=== PATIENT | female | born 1970 | race Caucasian/White ===

== ENCOUNTER 2017-06-12 05:55 | Day surgery (SDC) | payer OTHER ==
[~2017-06-12] VITALS: Ht 162.6 cm; Wt 63.6 kg
[~2017-06-12 05:55] MED LIST: BACLOFEN10 MG; CYCLOBENZAPRINE10 MG PO; FLOVENT HFA10.6 GM INH; GABAPENTIN300 MG; GUIATUSS AC SY120 ML PO; HYDROCODON-ACE1 EA11 PO; IBUPROFEN600 MG PO; IBUPROFEN800 MG PO; MELOXICAM15 MG PO; NORCO 5-325 TA1 EACH PO; PREDNISONE20 MG PO; PROTEXIN MM; SOMA350 MG PO; VENTOLIN HFA18 GM INH
[2017-06-12] MEDS ORDERED: SUCRALFATE1 GM PO (06:03)
--- NOTE | 2017-06-12 08:21 | NUR ---
06/12/17 0821 Bertha Rojas 0800 PT ARRVIED TO PACU WITH ORAL AIRWAY IN PLACE ON 6L VIA MASK. RESP EVEN AND UNLABORED. 0806 PT WOKE UP TO VERBAL STIMULI AND ORAL AIRWAY REMOVED. O2 SAT 100%, O2 MASK REMOVED. 0815 MD AT BEDSIDE. PT AWAKE AND TALKING.
--- NOTE | 2017-06-12 08:33 | NUR ---
ICED WATER AND COFFEE GIVEN. PATIENT IS UP TO BR W/RN FIRST ASSISTANT STANDBY. PT VOIDS UNMEASURED, CLEAR YELLOW URINE AND IS BACK IN BED. SCDS IN PLACE. SIG OTHER @ BS.
--- NOTE | 2017-06-12 08:59 | NUR ---
PATIENT IS UP TO THE BATHROOM ON HER OWN ACCORD. PATIENT DOES WELL WITH THAT.
[2017-06-12] MEDS ORDERED: NORCO 5-325 TA1 EACH PO (09:22)
[2017-06-12] MEDS ORDERED: MOTRIN IB200 MG PO (09:22)
--- NOTE | 2017-06-12 09:47 | NUR ---
PT UP TO BR INDEPENDENTLY AND DOES WELL WITH THAT. PT REQ DC HOME. DC INSTRUCTIONS ARE GIVEN IN PRESENCE OF SIG OTHER AND BOTH VERBALIZE UNDERSTANDING. PT DRESSES SELF AND TRANSFERS SELF TO TO BE DC HOME.
--- NOTE | 2017-07-15 10:36 | OR ---
[facility] [address], [place] [address] Signed DATE OF OPERATION: 06/12/2017 SURGEON: Heather Frances DO PREOPERATIVE DIAGNOSES: 1. DENITA-3. 2. High-risk HPV positive. 3. History of NIKKI PAP. 4. Tobacco use disorder. POSTOPERATIVE DIAGNOSES: 1. DENITA-3. 2. High-risk HPV positive. 3. History of NIKKI PAP. 4. Tobacco use disorder. PROCEDURE PERFORMED: Cold knife conization of the cervix. RADAR TECHNICIAN: None. ANESTHESIA: General. ESTIMATED BLOOD LOSS: 25 mL. SPECIMEN: Cone biopsy of the cervix with long suture at 12 o'clock, short suture at 6 o'clock. FINDINGS: Condyloma on the mons. Normal external genitalia. Cervix with acetowhite changes and abnormal Lugol uptake as noted on colposcopy. Abnormal cells removed in entirety grossly. The patient with descensus of the cervix to 1-2 cm above the introitus. Hemostasis at the end of procedure. COMPLICATIONS: None. Electronically Signed By: HEATHER FRANCES DO 07/15/17 1036 PATIENT NAME: TAVO LYNN OPERATIVE REPORT DATE OF : 74 REPORT #: [id number] PHYSICIAN: HEATHER FRANCES DO PCP: VANDANA FARRELL REPORT IS CONFIDENTIAL AND NOT TO BE RELEASED WITHOUT AUTHORIZATION [address] [place] [address] Signed INDICATIONS: Ms. Lynn is a pleasant 46-year-old, G4, P4, white female with 10 year history of no gynecologic care. A Pap was obtained in February 2017 that showed NIKKI with high-risk HPV. EMB was performed that showed no evidence of hyperplasia, malignancy, or atypia. Colposcopy was performed concerning for DENITA-3, which was confirmed with DENITA-3 at the 11 o'clock biopsy site. Patient continues to smoke cigarettes and is unable to quit at this time. The patient was consented for conizations of the cervix. Risks, benefits, and alternatives were discussed in detail with the patient. Patient understands and wished to proceed with the procedure. TECHNIQUE: The patient was taken to the operating room. A time-out was performed to confirm correct patient, correct procedure. General anesthesia was adequately established. Patient was prepped and draped in dorsal lithotomy position with feet in Yellofin stirrups. ICPs were on running and no preop antibiotics or heparin were indicated per SCIP protocol. Weighted speculum was placed in vagina and the cervix was examined. Stay sutures of 0 chromic were placed at 3 and 6 o'clock to assist with retraction and for hemostasis at the end of the procedure. Acetic acid was applied to the cervix and acetowhite changes were seen consistent with prior exam on colposcopy. Lugol's was then applied to the vagina and cervix with abnormal uptake in the cells with the previously noted acetowhite changes with no additional lesions noted. Paracervical block was performed with 0.25% Marcaine with epinephrine and then #11 blade on an angle knife handle was used to perform a cold knife conization circumferentially with careful attention to excise all grossly abnormal cells. The biopsy was removed and marked at 12 o'clock with a long suture and 6 o'clock with a short suture and sent to Pathology for further evaluation. The base of the biopsy site was fulgurated with the ball-tip electrocautery with good hemostasis. Monsel solution was applied and Gel-Foam was placed into the biopsy site. The previously placed stay sutures at 3 and 9 o'clock were tied together to keep Gel-Foam in place. Good hemostasis at the end of the procedure. Patient was then taken to PACU in good and stable condition. Sponge, needle, and instrument count was correct x2 at the end of the procedure. Heather Frances DO JDW/MODL /[id number] Electronically Signed By: HEATHER FRANCES DO 07/15/17 1036 PATIENT NAME: TAVO LYNN OPERATIVE REPORT DATE OF : 74 REPORT #: [id number] PHYSICIAN: HEATHER FRANCES DO PCP: VANDANA FARRELL REPORT IS CONFIDENTIAL AND NOT TO BE RELEASED WITHOUT AUTHORIZATION [facility] [address] [place] [address] [place], [place] [address] Signed Copies: ~ Electronically Signed By: HEATHER FRANCES DO 07/15/17 1036 PATIENT NAME: TAVO LYNN OPERATIVE REPORT DATE OF : 74 REPORT #: [id number] PHYSICIAN: HEATHER FRANCES DO PCP: VANDANA FARRELL REPORT IS CONFIDENTIAL AND NOT TO BE RELEASED WITHOUT AUTHORIZATION
== END 2017-06-12 09:47 | disposition home or self-care (01) ==
LOC: DS 05:55 → OPS 05:55 → DS 06:45 → OPS 09:47
PROVIDERS: Obstetrics & Gynecology
PROC: 0UBC7ZZ Excision of Cervix, Via Natural or Artificial Opening (ICD-10-PCS; principal; 2017-06-12 06:45)
DX: D06.9 Carcinoma in situ of cervix, unspecified (principal); N72 Inflammatory disease of cervix uteri; J45.909 Unspecified asthma, uncomplicated; F17.210 Nicotine dependence, cigarettes, uncomplicated; K21.9 Gastro-esophageal reflux disease without esophagitis
CPT/HCPCS: 00948; 88307; 88341; 88342; J1100; J1885; J2250; J2405; J2704; J2765; J3010; J7120

== ENCOUNTER 2019-01-12 20:28 | Emergency (ER) | payer OTHER ==
[~2019-01-12] VITALS: Ht 162.6 cm; Wt 65.9 kg
--- OUTSIDE RECORDS SUMMARY | ~2019-01-12 | XMS | Clinical Summary ---
Demographics + + + | Address | [address] | | | [place] [address] | + + + | Home Phone | | + + + | Preferred Language | Unknown | + + + | Marital Status | Single | + + + | Anabaptist Affiliation | Unknown | + + + | Race | Unknown | + + + | Ethnic Group | Unknown | + + + Author + + + | Author | [facility] | | | and [place] | + + + | Organization | [facility] | | | and [place] | + + + | Address | Unknown | + + + | Phone | Unavailable | + + + Support + + + + + | Name | Relationship | Address | Phone | + + + + + | Ghazala Watson | KIM | [address] [facility] | | | | | [place] | | | | | [address] | | + + + + + Care Team Providers + +------+ + | Care Employment Appeals Examiner Name | Role | Phone | + +------+ + | Adrienne Palacio NP | PCP | | + +------+ + Allergies + + + + + + | Active Allergy | Reactions | Severity | Noted | Comments | | | | | Date | | + + + + + + | Guaifenesin | Other (See Comments) | | 02/12/20 | Reaction: Makes | | | | | 17 | joints ache | + + + + + + Medications + + + +---------+------+------+-------+ | Medication | Sig | Dispensed | Refills | Star | End | Statu | | | | | | t | Date | s | | | | | | Date | | | + + + +---------+------+------+-------+ | albuterol 2.5 mg/3 | Take 2.5 mg by | | 0 | | | Activ | | mL nebulizer | nebulization every 6 | | | | | e | | solution | hours as needed for | | | | | | | | Wheezing. | | | | | | + + + +---------+------+------+-------+ | albuterol | Inhale 2 puffs into | | 0 | | | Activ | | (VENTOLIN HFA) 90 | the lungs every 6 | | | | | e | | mcg/puff inhaler | hours as needed for | | | | | | | | Wheezing. | | | | | | + + + +---------+------+------+-------+ | | Take 5 mLs by mouth | 120 mL | 3 | 02/0 | | Activ | | diphenhydrAMINE-visc | every 6 hours as | | | 2/20 | | e | | | needed (swallow). | | | 18 | | | | [id number] | (RECIPE = 1:1:1 | | | | | | | agnesium-simethicone | mixture of Maalox, | | | | | | | (MIRACLE MOUTHWASH) | diphenhydrAMINE, | | | | | | | suspension | viscous lidocaine) | | | | | | + + + +---------+------+------+-------+ | pantoprazole | Take 2 tablets by | 40 | 0 | 02/0 | | Activ | | (PROTONIX) 40 mg | mouth 2 times daily | tablet | | 2/20 | | e | | tablet | (before meals). | | | 18 | | | + + + +---------+------+------+-------+ | metroNIDAZOLE | take 1 tablet by | | 0 | 02/0 | | Activ | | (FLAGYL) 500 MG | mouth twice a day | | | 03/08 | | e | | tablet | | | | 18 | | | + + + +---------+------+------+-------+ | dexlansoprazole | Take 1 capsule by | 30 | 3 | 03/0 | | Activ | | (DEXILANT) [address] | mouth Daily. | capsule | | 10/06 | | e | | capsuleIndications: | | | | 18 | | | | Gastroesophageal | | | | | | | | reflux disease | | | | | | | | without esophagitis | | | | | | | + + + +---------+------+------+-------+ Active Problems + + + | Problem | Noted Date | + + + | Asthmatic bronchitis | 04/04/2017 | + + + | GERD (gastroesophageal reflux disease) | 03/12/2017 | + + + | Chronic left shoulder pain | 03/20/2015 | + + + | Carpal tunnel syndrome on left | 03/20/2015 | + + + Family History + + +------+ + | Medical History | Relation | Name | Comments | + + +------+ + | No known problems | Brother | | | + + +------+ + | Cancer | Father | | Bone Cancer | + + +------+ + | Brain aneurysm | Mother | | | + + +------+ + | Diabetes | Mother | | | + + +------+ + | Hypertension | Mother | | | + + +------+ + + +------+ + + | Relation | Name | Status | Comments | + +------+ + + | Brother | | Alive | | + +------+ + + | Father | | | | + +------+ + + | Mother | | | | + +------+ + + Social History + + + +--------+ + | Tobacco Use | Types | Packs/Day | Years | Date | | | | | Used | | + + + +--------+ + | Current Every Day | Cigarettes | 0.5 | 29 | Started: 1988 | | Smoker | | | | | + + + +--------+ + + + +---------+ + | Alcohol Use | Drinks/Week | oz/Week | Comments | + + +---------+ + | Yes | 4 Cans of beer 0 | 4.0 | | | | Standard drinks or | | | | | equivalent | | | + + +---------+ + + + + | Sex Assigned at | Date Recorded | | | | + + + | Not on file | | + + + + + + + | Job Start Date | Occupation | Industry | + + + + | Not on file | Not on file | Not on file | + + + + + + + + | Travel History | Travel Start | Travel End | + + + + + + | No recent travel history available. | + + Last Filed Vital Signs + + + + + | Vital Sign | Reading | Time Taken | Comments | + + + + + | Blood Pressure | 115/78 | 04/04/2017 5:05 PM | | | | | PST | | + + + + + | Pulse | 74 | 04/04/2017 5:00 PM | | | | | PST | | + + + + + | Temperature | 36.9 C (98.4 F) | 04/04/2017 4:41 PM | | | | | PST | | + + + + + | Respiratory Rate | 16 | 04/04/2017 1:44 PM | | | | | PST | | + + + + + | Oxygen Saturation | 98% | 04/04/2017 5:00 PM | | | | | PST | | + + + + + | Inhaled Oxygen | - | - | | | Concentration | | | | + + + + + | Weight | 65.7 kg (144 lb 13.5 | 04/04/2017 1:44 PM | | | | oz) | PST | | + + + + + | Height | 162.6 cm (5' 4") | 04/04/2017 1:44 PM | | | | | PST | | + + + + + | Body Mass Index | 24.86 | 04/04/2017 1:44 PM | | | | | PST | | + + + + + Plan of Treatment + + + + + | Health Maintenance | Due Date | Last Done | Comments | + + + + + | Vaccine: | | | | | Pneumococcal 19-64 | 9 | | | | (1 of 1 - PPSV23) | | | | + + + + + | Vaccine: | | | | | Dtap/Tdap/Td (1 - | 2 | | | | Tdap) | | | | + + + + + | Cervical Cancer | | | | | Screening (Pap) | 3 | | | + + + + + | Breast Cancer | | | | | Screening | 8 | | | + + + + + | Vaccine: Influenza | | | | | (#1) | 9 | | | + + + + + Results Not on filefrom Last 3 Months Insurance + +--------+ +--------+ +---------+--------+ | Payer | Benefi | Subscriber | Effect | Phone | Address | Type | | | t Plan | ID | herberth | | | | | | / | | Dates | | | | | | Group | | | | | | + +--------+ +--------+ +---------+--------+ | [employer] | [employer] | [id number] | 01/05/ | [phone] | | Medica | | MEDICAID HMO | HEALTH | | 2015-P | 1 | | id | | | MDCD | | resent | | | | | | [place] | | | | | | + +--------+ +--------+ +---------+--------+ + +--------+ +--------+ + + | Guarantor Name | Accoun | Relation to | Date | Phone | Billing Address | | | t Type | Patient | of | | | | | | | | | | + +--------+ +--------+ + + | Loraine Lynn | Person | Self [birth year] | [address] | | | al/Fam | | 1971 | [phone] | [place] | | | [place] | | | [address] (Home) | [phone] | + +--------+ +--------+ + + Advance Directives + + + + + | Type | Date Recorded | Patient | Explanation | | | | Electrical Designer | | + + + + + | Power of | | | | | Blanket Washer | | | | + + + + + | Advance | 04/04/2017 1:17 | | | | Directive | PM | | | + + + + +
--- OUTSIDE RECORDS SUMMARY | ~2019-01-12 | XMS | Encounter Summary ---
Demographics + + + | Address | [address] | | | [place] [address] | + + + | Home Phone | | + + + | Preferred Language | Unknown | + + + | Marital Status | Single | + + + | Presybeterian Affiliation | Unknown | + + + | Race | Unknown | + + + | Ethnic Group | Unknown | + + + Author + + + | Author | [facility] | | | and [place] | + + + | Organization | [facility] | | | and [place] | + + + | Address | Unknown | + + + | Phone | Unavailable | + + + Support + + + + + | Name | Relationship | Address | Phone | + + + + + | Ghazala Watson | KIM | [address] [facility] [facility] | | | | | [facility] [place] | | | | | [address] | | + + + + + Care Team Providers + +------+ + | Care Machine Adjuster Name | Role | Phone | + +------+ + PCP | Unavailable | + +------+ + Encounter Details +--------+ + + + + | Date | Type | Department | Care Team | Description | +--------+ + + + + | 12/31/ | [facility] | [facility] | Will Rangel, | | | 2005 | Encounter | [facility] | [address] | | | | | [address] | [place] | | | | | [place] | [address] | | | | | [address] | | | | | | [phone] | | | +--------+ + + + + Social History + +-------+ +--------+------+ | Tobacco Use | Types | Packs/Day | Years | Date | | | | | Used | | + +-------+ +--------+------+ | Never Assessed | | | | | + +-------+ +--------+------+ + + + | Sex Assigned at [...] filedocumented as of this encounter Visit Diagnoses Not on filedocumented in this encounter"
--- OUTSIDE RECORDS SUMMARY | ~2019-01-12 | XMS | Encounter Summary ---
Demographics + + + | Address | [address] | | | [place] [address] | + + + | Home Phone | | + + + | Preferred Language | Unknown | + + + | Marital Status | Single | + + + | Protestant Affiliation | Unknown | + + + | Race | Unknown | + + + | Ethnic Group | Unknown | + + + Author + + + | Author | [facility] | | | and [place] | + + + | Organization | [facility] | | | and [place] | + + + | Address | Unknown | + + + | Phone | Unavailable | + + + Support + + + + + | Name | Relationship | Address | Phone | + + + + + | Ghazala Watson | KIM | [address] [facility] | | | | | [place] | | | | | [address] | | + + + + + Care Team Providers + +------+ + | Care Rail Track Maintainer Name | Role | Phone | + +------+ + | Adrienne Palacio NP | PCP | | + +------+ + Encounter Details +--------+ + + + + | Date | Type | Department | Care Team | Description | +--------+ + + + + | 02/11/ | Abstract | [facility] | Bean Wilkes MD | | | 2016 | | GASTROENTEROLOGY | [address] | | | | | [address] | [address] [place] | | | | | [address] [place] | [address] | | | | | [address] | | | | | | [phone] | | | +--------+ + + + [...] + + +---------+ + | Yes | 0 Standard drinks | 4.0 | | | | or equivalent 4 | | | | | Cans of beer | | | + + +---------+ + [...] + + + | Blood Pressure | - | - | | + + + + + | Pulse | - | - | | + + + + + | Temperature | - | - | | + + + + + | Respiratory Rate | - | - | | + + + + + | Oxygen Saturation | - | - | | + + + + + | Inhaled Oxygen | - | - | | | Concentration | | | | + + + + + | Weight | 68.3 kg (150 lb 9.6 | 02/11/2017 2:36 PM | | | | oz) | PST | | + + + + + | Height | - | - | | + + + + + | Body Mass Index | 25.45 | 03/20/2015 11:01 AM | | | | | PST | | + + + + + documented in this encounter Plan of Treatment Not on filedocumented as of this encounter Visit Diagnoses Not on filedocumented in this encounter"
--- OUTSIDE RECORDS SUMMARY | ~2019-01-12 | XMS | Encounter Summary ---
Demographics + + + | Address | [address] | | | [place] [address] | + + + | Home Phone | | + + + | Preferred Language | Unknown | + + + | Marital Status | Single | + + + | Roman Catholic Affiliation | Unknown | + + + | Race | Unknown | + + + | Ethnic Group | Unknown | + + + Author + + + | Author | [facility] | | | and [place] | + + + | Organization | [facility] | | | and [place] | + + + | Address | Unknown | + + + | Phone | Unavailable | + + + Support + + + + + | Name | Relationship | Address | Phone | + + + + + | Ghazala Watson | KIM | [address] [facility] | | | | | [place] | | | | | [address] | | + + + + + Care Team Providers + +------+ + | Care Deputy Controller Name | Role | Phone | + +------+ + | Adrienne Palacio NP | PCP | | + +------+ + Reason for Visit + + + | Reason | Comments | + + + | Heartburn | | + + + Encounter Details +--------+ + + + + | Date | Type | Department | Care Team | Description | +--------+ + + + + | 03/20/ | Telephone | [facility] [place] | Gibson Tate | Heartburn | | 2018 | | GASTROENTEROLOGY | MD Mohan [address] | | | | | [address] [place] | [address] [place] | | | | | [address] [place], [place] | [place] [address] | | | | | [address] | [phone] | | | | | [phone] | | | +--------+ + + + [...]
--- OUTSIDE RECORDS SUMMARY | ~2019-01-12 | XMS | Encounter Summary ---
Demographics + + + | Address | [address] | | | [place] [address] | + + + | Home Phone | | + + + | Preferred Language | Unknown | + + + | Marital Status | Single | + + + | Druze Affiliation | Unknown | + + + | Race | Unknown | + + + | Ethnic Group | Unknown | + + + Author + + + | Author | [facility] | | | and [place] | + + + | Organization | [facility] | | | and [place] | + + + | Address | Unknown | + + + | Phone | Unavailable | + + + Support + + + + + | Name | Relationship | Address | Phone | + + + + + | Ghazala Watson | KIM | [address] | | | | | [place] | | | | | [address] | | + + + + + Care Team Providers + +------+ + | Care Rubber Roller Grinder Operator Name | Role | Phone | + +------+ + | Adrienne Palacio NP | PCP | | + +------+ + Reason for Visit + + + | Reason | Comments | + + + | Gastroesophageal | | | Reflux | | + + + Evaluate & Treat (Routine) +--------+--------+ + + + + | Status | Reason | Specialty | Diagnoses / | Referred By | Referred To | | | | | Procedures | Contact | Contact | +--------+--------+ + + + + | Closed | | Gastroenterol | Diagnoses | Unknown, | Harri, | | | | ogy | GERD | Doctor | Bean Posey MD | | | | | (gastroesoph | Phone: | [address], | | | | | ageal reflux | | [address] | | | | | disease) | Fax: | [place], | | | | | Procedures | | [place] [address] | | | | | Office Visit | | Phone: | | | | | | | [phone] | | | | | | | Fax: | | | | | | | [phone] | +--------+--------+ + + + + Encounter Details +--------+---------+ + + + | Date | Type | Department | Care Team | Description | +--------+---------+ + + + | 03/12/ | Office | [facility] | Gibson Tate | Gastroesophageal | | 2018 | Visit | GASTROENTEROLOGY | MD Mohan [address] | reflux disease, | | | | [address] [place] | [address] [place] | esophagitis presence | | | | [address], [place] | [place] [address] | not specified | | | | [address] | [phone] | (Primary Dx); | | | | [phone] | | Cannabis use, | | | | | | uncomplicated | +--------+---------+ + + + Social History + + [...] + + + | Blood Pressure | 98/68 | 03/12/2017 2:46 PM | | | | | PST | | + + + + + | Pulse | 69 | 03/12/2017 2:46 PM | | | | | PST | | + + + + + | Temperature | 37.2 C (99 F) | 03/12/2017 2:46 PM | | | | | PST | | + + + + + | Respiratory Rate | 14 | 03/12/2017 2:46 PM | | | | | PST | | + + + + + | Oxygen Saturation | 97% | 03/12/2017 2:46 PM | | | | | PST | | + + + + + | Inhaled Oxygen | - | - | | | Concentration | | | | + + + + + | Weight | 67.4 kg (148 lb 9.4 | 03/12/2017 2:46 PM | | | | oz) | PST | | + + + + + | Height | 163.8 cm (5' 4.5") | 03/12/2017 2:46 PM | | | | | PST | | + + + + + | Body Mass Index | 25.11 | 03/12/2017 2:46 PM | | | | | PST | | + + + + + documented in this encounter Patient Instructions Patient Instructions Gibson Tate MD - 03/12/2017 3:00 PM PST-Increase omeprazole to 40mg before breakfast and dinner -take ranitidine (zantac) 300mg before bed -arrange EGD documented in this encounter Progress Notes Gibson Tate MD - 03/12/2017 3:00 PM PST Outpatient Gastroenterology Consult Note Date of Office Visit: 03/13/17 Referring Provider: Doctor Unknown No address on file Providing Physician: Gibson Tate MD. Chief Complaint: Gastroesophageal Reflux History of Present Illness Loraine Lynn is a 46 y.o. female with past medical history significant for remote drug abu se, various musculoskeletal problems, who presents for evaluation of heartburn. The patient reports that she has had long-standing heartburn. She is has been on omeprazol e 40 mg daily for the past year he continues to struggle with daily heartburn symptoms. She has also previously tried ranitidine twice daily which she found completely ineffective and the control of her symptoms. She reports that the omeprazole is helpful and she notices wh en she misses a dose but it does not provide complete symptomatic relief. Mornings are the worst time of day for her heartburn. She denies any dysphagia, or family history of esophag eal or gastric cancer. She has not previously tried many different PPI. Endoscopic History None Review of Systems ROS A 12 point review of systems was conducted with the patient. Pertinent positives and negati ves listed per HPI Problem List Patient Active Problem List Diagnosis Chronic left shoulder pain Carpal tunnel syndrome on left GERD (gastroesophageal reflux disease) Past Medical History Past Medical History: Diagnosis Date Asthmatic bronchitis Biceps tendonitis on left Bursitis of left shoulder Carpal tunnel syndrome on left 03/20/2015 Cervical radiculopathy Chronic left shoulder pain 03/20/2015 Complete rotator cuff tear of left shoulder Degenerative joint disease 2014 Left AC Joint Disorder of bursae and tendons in left shoulder region Epicondylitis, lateral, left Epigastric abdominal pain Extrinsic asthma, unspecified asthma severity, unspecified whether complicated, unspeci fied whether persistent Frequent headaches GERD (gastroesophageal reflux disease) Ingrowing nail Neck pain on left side Onychodystrophy Onychogryphosis Osteophyte of left shoulder Pneumonia Secondary osteoarthritis of left shoulder SOB (shortness of breath) Strain of left shoulder and left Upper Arm Superior glenoid labrum lesion of left shoulder Past Surgical History Past Surgical History: Procedure Laterality Date ANTERIOR CRUCIATE LIGAMENT REPAIR Left 2007 SHOULDER SURGERY Left 2003 SINUS SURGERY 2006 For headaches. Headaches did not improve. TUBAL LIGATION 2002 Family History Family History Problem Relation Age of Onset Brain aneurysm Mother Hypertension Mother Diabetes Mother Cancer Father Bone Cancer No Known Problems Brother Social History Social History Social History Marital status: Single Spouse name: N/A Number of children: N/A Years of education: N/A Social History Main Topics Smoking status: Current Every Day Smoker Packs/day: 0.50 Years: 29.00 Types: Cigarettes Start date: 1987 Smokeless tobacco: None Alcohol use 2.4 oz/week 4 Cans of beer per week Drug use: Yes Types: Methamphetamines, Marijuana Comment: Meth user until 16 years ago. Marijuana on weekends. Sexual activity: Not Asked Other Topics Concern None Social History Narrative None Allergies Allergies Allergen Reactions Guaifenesin Other (See Comments) Reaction: Makes joints ache Intolerance No active intolerances/contraindications Medications Current Outpatient Prescriptions on File Prior to Visit Medication Sig Dispense Refill albuterol (VENTOLIN HFA) 90 mcg/puff inhaler Inhale 2 puffs into the lungs every 6 hour s as needed for Wheezing. albuterol 2.5 mg/3 mL nebulizer solution Take 2.5 mg by nebulization every 6 hours as n eeded for Wheezing. naproxen (NAPROSYN) 500 mg tablet Take 500 mg by mouth 2 times daily (with breakfast & dinner). No current facility-administered medications on file prior to visit. Physical Exam Vitals:BP 98/68 | Pulse 69 | Temp 37.2 C (99 F) (Temporal) | Resp 14 | Ht 1.638 m ( 5' 4.5") | Wt 67.4 kg (148 lb 9.4 oz) | SpO2 97% | BMI 25.11 kg/m General: This is a well-developed,well-nurished female in no apparent distress, alert and o riented x 3. Head: Reveals normocephalic, atraumatic Eyes: Sclera anicteric, normal conjunctiva Mouth: Oropharynx is clear without obstruction. No oral lesion. Lungs: Clear to auscultation without rales or wheezes. Cardiac: Reveals regular rate and rhythm with normal S1 and S2 and no murmurs, rubs or gall ops. Abdomen: Soft and mildly tender in the epigastric area without masses or organmegaly. No g uarding or rebound pain. Normoactive bowel sounds. Extremities: Without cyanosis, clubbing or edema. Neuro: Awake, alert, oriented x3. Skin: Warm and dry, no erythematous rash. Labs Labs on 01/29/2017 WBC 11.1, hemoglobin 13.5, platelets 230, H. pylori breath test was negative Imaging An outside esophagram was performed which I reviewed. This showed reflux but normal esopha geal motility and no hiatal hernia. No esophageal stricture or stenosis. Assessment and Plan This is a 46-year-old woman with long-standing symptomatic GERD. She suffers from classic heartburn symptoms. She has been on omeprazole 40 mg daily for the past year with progressi ve/worsening heartburn symptoms. She denies any weight loss, dysphagia, and does not have a ny family history of esophageal or gastric cancer. She is previously tried ranitidine which has been ineffective for her. She continues to have daily heartburn symptoms despite being on omeprazole 40 mg daily. We discussed the management of heartburn. Including medical and surgical options. Her pre ference is to try medical management. Given the chronicity of her symptoms and as her symptoms are refractory to PPI therapy, I r ecommended proceeding with an upper endoscopy. I offered to do a benito pH test, she doesn't want to have that done presently. This is because she is hesitant to come off of her PPI f or a week as would be needed for the benito pH test. I recommended that she increase her omeprazole to 40 mg twice a day and also to take raniti dine 300 mg by mouth daily at bedtime. I recommended that she continue to do this for 1-2 m onths. The hope is to gain some control of her heartburn symptoms and then eventually titra te the PPI and ranitidine back down. We reviewed lifestyle modifications for GERD. She is already following a GERD lifestyle. She consumes marijuana on a regular basis so I think she is a good candidate for monitored anesthesia care for her upper endoscopy. ICD-10-CM ICD-9-CM 1. Gastroesophageal reflux disease, esophagitis presence not specified K21.9 530.81 Case re quest: EGD; N/A 2. Cannabis use, uncomplicated F12.90 305.20 Case request: EGD; N/A Follow up: Return if symptoms worsen or fail to improve. CC: Doctor Unknown No address on file Adrienne Palacio, [id number] [place] [address] Portions of this chart may have been created with [employer] voice recognition software. Occasi onal wrong-word or sound-alike substitutions may have occurred due to the inherent art itations of voice recognition software. Please read the chart carefully and recognize, using context, where these substitutions have occurred Fani Mayorga RN - 03/12/2017 3:00 PM PSTFollowing office visit scheduled pt for propofol EGD on 03/20 08/04 at 1pm; pt uses THC for pain in edibles and topical cream.; she is not taking [place]; re viewed medication, surg/med hx and allergies; reviewed prep instructions and were given to p t; completed case request order, notes to MA. Ordered new rx for Omeprazole 40 mg bid befor e meals and ranitidine 300 mg 1 nightly prn to [facility] in [place]. documented in this encounter Plan of Treatment Not on filedocumented as of this encounter Procedures + +--------+ + + + | Procedure Name | Priori | Date/Time | Associated Diagnosis | Comments | | | ty | | | | + +--------+ + + + | LABS - EXTERNAL SCAN | | 01/06/2016 | | Results for this | | | | 12:00 AM | | procedure are in the | | | | PST | | results section. | + +--------+ + + + documented in this encounter Results LABS - EXTERNAL SCAN (01/06/2016 12:00 AM PST) + + + | Narrative | Performed At | + + + | Ordered by an | | | unspecified provider. | | + + + documented in this encounter Visit Diagnoses + + | Diagnosis | + + | Gastroesophageal reflux disease, esophagitis presence not specified - Primary | + + | Cannabis use, uncomplicated Cannabis abuse, unspecified | + + documented in this encounter
--- OUTSIDE RECORDS SUMMARY | ~2019-01-12 | XMS | Encounter Summary ---
Demographics + + + | Address | [address] | | | [place] [address] | + + + | Home Phone | | + + + | Preferred Language | Unknown | + + + | Marital Status | Single | + + + | Buddhist Affiliation | Unknown | + + + | Race | Unknown | + + + | Ethnic Group | Unknown | + + + Author + + + | Author | [facility] | | | and [place] | + + + | Organization | [facility] | | | and [place] | + + + | Address | Unknown | + + + | Phone | Unavailable | + + + Support + + + + + | Name | Relationship | Address | Phone | + + + + + | Ghazala Watson | KIM | [address] | | | | | [place] | | | | | [address] | | + + + + + Care Team Providers + +------+ + | Care Automation And Control Engineer Name | Role | Phone | + [...] | | | | [place] | [place] [address] | [address] Phone: | | | | | of skin | Phone: | [phone] | | | | | sensation | [phone] | Fax: | | | | | Procedures | Fax: | [phone] | | | | | ME MOTOR | [phone] | | | | | | &/SENS [...] | shoulder pain | | | | [address], | [address] [place], [place] | (Primary Dx); Carpal | | | | [place] [address] | [address] | tunnel syndrome on | | | | [phone] | | left | +--------+ + + [...] Walker MD - 03/20/2015 11:58 AM PST [facility] Musculoskeletal, Sports and Spine, Physiatry [address] [address] Test Date: 03/20/2015 Patient Name: Loraine Lynn : 1970 Physician: Hipolito Walker MD MR #: [id number] Sex: Female Referring Physician: Errol Stauffer MD [...] hesitate to call. Hipolito Walker MD Fellow, [employer]. documented [...]
--- OUTSIDE RECORDS SUMMARY | ~2019-01-12 | XMS | Encounter Summary ---
Demographics + + + | Address | [address] | | | [place] [address] | + + + | Home Phone | | + + + | Preferred Language | Unknown | + + + | Marital Status | Single | + + + | Protestant Affiliation | Unknown | + + + | Race | Unknown | + + + | Ethnic Group | Unknown | + + + Author + + + | Author | [facility] | | | and [place] | + + + | Organization | [facility] | | | and [place] | + + + | Address | Unknown | + + + | Phone | Unavailable | + + + Support + + + + + | Name | Relationship | Address | Phone | + + + + + | Ghazala Watson | KIM | [address] | | | | | [place] | | | | | [address] | | + + + + + Care Team Providers + +------+ + | Care Endless Bed Drum Sander Name | Role | Phone | + [...] | | | | | | | CO | | | | | | | ESOPHAGOGAST | | | | | | | RODUODENOSCO | | | | | | | PY TRANSORAL | | | | | | | DIAGNOSTIC | | | | | | | CO EGD | | | | | | | TRANSORAL | | | | | | | BIOPSY | | | | | | | SINGLE/MULTI | | | | | | | PLE CO | | | | | | | [...] | | | | | [address] | [address] [place] | | | | | [place] | [place], [place] [address] | | | | | [address] | [phone] | | | | | [phone] | | | +--------+ + + + [...] [address] | | eral | Wrist; tjub-dfi-gnrtfd catheter | Marilou López, | Lilliana Coronel [...]
--- OUTSIDE RECORDS SUMMARY | ~2019-01-12 | XMS | Encounter Summary ---
Demographics + + + | Address | [address] | | | [place] [address] | + + + | Home Phone | | + + + | Preferred Language | Unknown | + + + | Marital Status | Single | + + + | Taoist Affiliation | Unknown | + + + | Race | Unknown | + + + | Ethnic Group | Unknown | + + + Author + + + | Author | [facility] | | | and [place] | + + + | Organization | [facility] | | | and [place] | + + + | Address | Unknown | + + + | Phone | Unavailable | + + + Support + + + + + | Name | Relationship | Address | Phone | + + + + + | Ghazala Watson | KIM | [address] | | | | | [place] | | | | | [address] | | + + + + + Care Team Providers + +------+ + | Care Organic Extractions Technician Name | Role | Phone | [...] | | | | | | | [place] | | | | | | | ESOPHAGOGAST | | | | | | | RODUODENOSCO | | | | | | | PY TRANSORAL | | | | | | | DIAGNOSTIC | | | | | | | VA EGD | | | | | | | TRANSORAL | | | | | | | BIOPSY | | | | | | | SINGLE/MULTI | | | | | | | PLE VA | | | | | | | [...] Description | +--------+---------+ + + + | 04/04/ | Surgery | [facility] | Jaye Owen | EGD | | 2018 | | [facility] | MD Mohan [address] | | | | | [address] | [address] [place] | | | | | [place], [place] | [place] [address] | | | | | [address] | [phone] | | | | | [phone] | | | +--------+---------+ + + + Social History [...] (swallow). | | | | | | fklmmdzse-kcevvajw-y | (RECIPE = 1:1:1 | | | | | | agnesium-simethicone | mixture of Maalox, | | | | | | (MIRACLE MOUTHWASH) | diphenhydrAMINE, | | | | | | suspension | viscous lidocaine) | | | | | + + + +---------+ + + | metroNIDAZOLE | take 1 tablet by | | 0 | 03/20/19 | | | (FLAGYL) 500 MG | [...] | [facility] | | GastroenterologyPatient Name: Loraine Marcial Date: 04/04/2017 | PROVATION | | 4:16 PMMRN: [id number] #: [id number] of : | | | 1970Admit Type: AmbulatoryAge: 46[facility]Gender: FemaleNote | | | Status: FinalizedAttending MD: JAYE OWEN , [facility]cedure: | | | Upper GI endoscopyIndications: Dysphagia, | | | HeartburnProviders: JAYE OWEN MD, Rakel Willson, | | | RNKimberly, Postal Supervisor, [facility]. | | | MD Jl (Anesthesia Staff)Referring MD: Adrienne Palacio, | | | RIPSAW GRADER (Referring MD)Medicines: Monitored Anesthesia | | | [...] On: | | | 04/04/2017 4:16 PM [facility], [address] | | | [place] [address] | | | - Normal duodenal bulb [...] On: 04/04/2017 4:16 PM | | | [facility], [address] [place], [place] | | | [address] | | + + -+ + +---------+ [...] | 1.010, 1.015, | | | | [place], | | 1.020, 1.025 | | | | POC | | | | | + + + + + + | Lot Number | [id number] | | | | + + + [...] glandular tissue as | | | sampled. CLR:[facility]:C2NR GROSS DESCRIPTION: Received in three | | | parts. A. Received in formalin labeled "Loraine Lynn" and "stomach | | | bx" on the requisition are high grade pink and maddox colored tissue | | | fragments measuring [...] | | | submitted, all in (C1). ka:CLR:[facility] PERFORMING LABORATORY: Tissue | | | processing and slide preparation were performed by [facility] | | | [facility], [facility] [address], [place] [address] | | | (Marketing Communication Manager: Dougie Cline M.D. CLIA#: [id number]). | | | Professional interpretation was performed by [facility], [address], [place] [address] (Marketing Communication Manager: Dougie | | | Rosalinda Cline; CLIA#: [id number]). Diagnostician: | | | Radames Staples MD [...] + documented in this encounter Visit Diagnoses Not on filedocumented in this encounter Administered Medications + +--------+---------+------+------+------+ [...] ONCE PRN, Wheezing, | | | Starting 04/04/17 at 1636, | | | For 1 dose, Pre-op | | + +---+ | | | + +---+ | albuterol-ipratropium (DUONEB) | | | 2.5-0.5 mg/3 mL nebulizer | | | solution 3 mL 3 mL, | | | Nebulization, ONCE PRN, Wheezing, | | | Shortness of Breath, Starting | | | 04/04/17 at 1636, For 1 dose, | | [...] | mL/hr | | | CONTINUOUS, Starting 04/04/17 | | PM PST | | | [...] history of PONV, Starting | | | 04/04/17 at 1636, For 1 dose, | | [...] | Intravenous, CONTINUOUS, Starting | | | 04/04/17 at 1700, TKO. Use | | | this instead of LR if patient is | | | on dialysis., Pre-op | | + +---+ | | | + +---+ documented in this encounter
--- OUTSIDE RECORDS SUMMARY | ~2019-01-12 | XMS | Encounter Summary ---
Demographics + + + | Address | [address] | | | [place] [address] | + + + | Home Phone | | + + + | Preferred Language | Unknown | + + + | Marital Status | Single | + + + | Mu-Ism Affiliation | Unknown | + + + | Race | Unknown | + + + | Ethnic Group | Unknown | + + + Author + + + | Author | [facility] | | | and [place] | + + + | Organization | [facility] | | | and [place] | + + + | Address | Unknown | + + + | Phone | Unavailable | + + + Support + + + + + | Name | Relationship | Address | Phone | + + + + + | Ghazala Watson | KIM | [address] [facility] [facility] [address] | | | | | [place] | | | | | [address] | | + + + + + Care Team Providers + +------+ + | Care Necktie Centralizing Machine Operator Name | Role | Phone | + +------+ + | Adrienne Paalcio CYANIDE POT HARDENER | PCP | | + +------+ + [...] [place] | | | | | [address], [place] | [place] [address] | | | | | [address] | [phone] | | | | | [phone] | | | +--------+ + + + [...]
--- OUTSIDE RECORDS SUMMARY | ~2019-01-12 | XMS | Encounter Summary ---
Demographics + + + | Address | [address] | | | [place] [address] | + + + | Home Phone | | + + + | Preferred Language | Unknown | + + + | Marital Status | Single | + + + | Gnosticism Affiliation | Unknown | + + + | Race | Unknown | + + + | Ethnic Group | Unknown | + + + Author + + + | Author | [facility] | | | and [place] | + + + | Organization | [facility] | | | and [place] | + + + | Address | Unknown | + + + | Phone | Unavailable | + + + Support + + + + + | Name | Relationship | Address | Phone | + + + + + | Ghazala Watson | KIM | [address] [facility] | | | | | [place] | | | | | [address] | | + + + + + Care Team Providers + +------+ + | Care Thermostatic Controls Supervisor Name | Role | Phone | + +------+ + | Adrienne Palacio NP | PCP | | + +------+ + Encounter Details +--------+ + + + + | Date | Type | Department | Care Team | Description | +--------+ + + + + | 03/04/ | Abstract | [facility] | Bean Wilkes MD | | | 2018 | | GASTROENTEROLOGY | [address] | | | | | [address] [place] | [address] [place] | | | | | [address] [place] | [address] | | | | | [address] | | | | | | [phone] | | | +--------+ + + + [...]
--- OUTSIDE RECORDS SUMMARY | ~2019-01-12 | XMS | Encounter Summary ---
Demographics + + + | Address | [address] | | | [place] [address] | + + + | Home Phone | | + + + | Preferred Language | Unknown | + + + | Marital Status | Single | + + + | Worship Affiliation | Unknown | + + + | Race | Unknown | + + + | Ethnic Group | Unknown | + + + Author + + + | Author | [facility] | | | and [place] | + + + | Organization | [facility] | | | and [place] | + + + | Address | Unknown | + + + | Phone | Unavailable | + + + Support + + + + + | Name | Relationship | Address | Phone | + + + + + | Ghazala Watson | KIM | [address] [facility] | | | | | [place] | | | | | [address] | | + + + + + Care Team Providers + +------+ + | Care Facility Sales And Admin Name | Role | Phone | + +------+ + | Ardienne Palacio NP | PCP | | + [...] | | | | | | | ME | | | | | | | ESOPHAGOGAST | | | | | | | RODUODENOSCO | | | | | | | PY TRANSORAL | | | | | | | DIAGNOSTIC | | | | | | | ME EGD | | | | | | | TRANSORAL | | | | | | | BIOPSY | | | | | | | SINGLE/MULTI | | | | | | | PLE ME | | | | | | | [...] | | | | | [address] | [address] [place] | | | | | [place] | [place], [place] [address] | | | | | [address] | [phone] | | | | | [phone] | | | +--------+ + + + [...] [address] | | eral | Wrist; hpyz-wmn-kkejis catheter | Marilou López, | Lilliana Coronel [...]
--- OUTSIDE RECORDS SUMMARY | ~2019-01-12 | XMS | Encounter Summary ---
Demographics + + + | Address | [address] | | | [place] [address] | + + + | Home Phone | | + + + | Preferred Language | Unknown | + + + | Marital Status | Single | + + + | Sabianism Affiliation | Unknown | + + + | Race | Unknown | + + + | Ethnic Group | Unknown | + + + Author + + + | Author | [facility] | | | and Bebetoana | + + + | Organization | [facility] | | | and Bebetoana [...] [place] | | | | | [address] | | + + + + + Care Team Providers + +------+ + | Care Senior Reliability Engineer Name | Role | Phone | [...] | | | | | | | [place] | | | | | | | ESOPHAGOGAST | | | | | | | RODUODENOSCO | | | | | | | PY TRANSORAL | | | | | | | DIAGNOSTIC | | | | | | | [place] EGD | | | | | | | TRANSORAL | | | | | | | BIOPSY | | | | | | | SINGLE/MULTI | | | | | | | PLE [place] | | | | | | | [...] | | | | | [address] | [address] [place] | | | | | [place], [place] | [place] [address] | | | | | [address] | [phone] | | | | | [phone] | | | +--------+---------+ + + + [...] (swallow). | | | | | | heppmgmjc-cnmggsao-d | (RECIPE = 1:1:1 | | | [...] 04/04/2017 | PROVATION | | 4:16 PMMRN: [id number] #: [id number] of : | | | 1970Admit Type: AmbulatoryAge: 46Room: [facility] 01Gender: FemaleNote | | | Status: FinalizedAttending MD: JAYE OWEN , [facility] DOTHANrocedure: | | | Upper GI endoscopyIndications: Dysphagia, | | | HeartburnProviders: JAYE OWEN MD, Rakel Willson, | | | RNKimberly, Paring Machine Operator, [facility]. | | | MD Jl (Anesthesia Staff)Referring MD: Adrienne Palacio, | | | SUPERVISOR GARAGE (Referring MD)Medicines: Monitored Anesthesia | | | [...] On: | | | 04/04/2017 4:16 PM [facility], [address] | | | [place] [address] | | | - Normal duodenal bulb [...] On: 04/04/2017 4:16 PM | | | [facility], [address] [place], [place] | | | [address] | | + + -+ + +---------+ [...] | 1.010, 1.015, | | | | [place], | | 1.020, 1.025 | | | | POC | | | | | + + + + + + | Lot Number | [id number] | | | | + + + [...] tissue as | | | sampled. CLR:[facility]:C2NR GROSS DESCRIPTION: Received in three | | [...] | | submitted, all in (C1). ka:CLR:[facility] PERFORMING LABORATORY: Tissue | | | processing and slide preparation were performed by [employer] | | | [employer], [facility] [address], [place] [address] | | | (Selector Packer: Dougie Cline M.D. CLIA#: [id number]). | | | Professional interpretation was performed by [employer], [address] | | [address], [place] [address] (Selector Packer: Dougie | | | Rosalinda Cline; CLIA#: [id number]). Diagnostician: | | | Radames Staples MD [...]
--- OUTSIDE RECORDS SUMMARY | ~2019-01-12 | XMS | Encounter Summary ---
Demographics + + + | Address | [address] | | | [place] [address] | + + + | Home Phone | | + + + | Preferred Language | Unknown | + + + | Marital Status | Single | + + + | Latter-Day Affiliation | Unknown | + + + | Race | Unknown | + + + | Ethnic Group | Unknown | + + + Author + + + | Author | [facility] | | | and Bebetoana | + + + | Organization | [facility] | | | and [place]eto[place] | + + + | Address | Unknown | + + + | Phone | Unavailable | + + + Support + + + + + | Name | Relationship | Address | Phone | + + + + + | Ghazala Watson | KIM | [address] | | | | | [place] | | | | | [address] | | + + + + + Care Team Providers + +------+ + | Care Editor In Chief Name | Role | Phone | + [...] | (gastroesoph | Phone: | [address], | | | | | ageal reflux | | [address] | | | | | disease) | Fax: | [place], | | | | | Procedures | | [place] [address] | | | | | Office Visit | | Phone: | | | | | | | [phone] | | | | | | | Fax: | | | | | | | [phone] | +--------+--------+ + + + + Encounter Details +--------+---------+ + + + | Date | Type | Department | Care Team | Description | +--------+---------+ + + + | 03/12/ | Office | [facility] | Gibson Tate | Gastroesophageal | | 2018 | Visit | GASTROENTEROLOGY | MD Mohan [address] | reflux disease, | | | | [address] | [address] [place] | esophagitis presence | | | | [address] [place], [place] | [place] [address] | not specified | | | | [address] | [phone] | (Primary Dx); | | | | [phone] | | Cannabis use, | | | [...] Unknown No address on file Adrienne Palacio, [id number] [place] [address] Portions of this chart may have been created with [employer] voice recognition software. Occasi onal wrong-word or [...] and topical cream.; she is not taking [place]; re viewed medication, surg/med hx and allergies; reviewed prep instructions and were given to p t; completed case request order, notes to MA. Ordered new rx for Omeprazole 40 mg bid befor e meals and ranitidine 300 mg 1 nightly prn to [facility] in [place]. documented in this encounter Plan of Treatment [...]
--- OUTSIDE RECORDS SUMMARY | ~2019-01-12 | XMS | Encounter Summary ---
Demographics + + + | Address | [address] | | | [place] [address] | + + + | Home Phone | | + + + | Preferred Language | Unknown | + + + | Marital Status | Single | + + + | Sabianism Affiliation | Unknown | + + + | Race | Unknown | + + + | Ethnic Group | Unknown | + + + Author + + + | Author | [facility] | | | and Bebeto[place] | + + + | Organization | [facility] | | | and Bebeto[place] | + + + | Address | Unknown | + + + | Phone | Unavailable | + + + Support + + + + + | Name | Relationship | Address | Phone | + + + + + | Ghazala Watson | KIM | [address] [facility] [address] [facility] | | | | | [place] | | | | | [address] | | + + + + + Care Team Providers + +------+ + | Care Database Tester Name | Role | Phone | + [...] + + | 04/24/ | Telephone | [facility] | Gibson Tate | Medication Question | | 2017 | | GASTROENTEROLOGY | MD Mohan [address] | | | | | [address] | [address] [place] | | | | | [address] [place], [place] | [place] [address] | | | | | [address] | [phone] | | | | | [phone] | | | +--------+ + + + [...]
--- OUTSIDE RECORDS SUMMARY | ~2019-01-12 | XMS | Encounter Summary ---
Demographics + + + | Address | [address] | | | [place] [address] | + + + | Home Phone | | + + + | Preferred Language | Unknown | + + + | Marital Status | Single | + + + | Yazdanism Affiliation | Unknown | + + + | Race | Unknown | + + + | Ethnic Group | Unknown | + + + Author + + + | Author | [facility] | | | and Bebetoana | + + + | Organization | [facility] | | | and Bebetoana | + + + | Address | Unknown | + + + | Phone | Unavailable | + + + Support + + + + + | Name | Relationship | Address | Phone | + + + + + | Ghazala Watson | KIM | [address] [facility] | | | | | [place] | | | | | [address] | | + + + + + Care Team Providers + +------+ + | Care Windows Laptop Technician Name | Role | Phone | + +------+ + | Adrienne Palacio NP | PCP | | + +------+ + Encounter Details +--------+ + + + + | Date | Type | Department | Care Team | Description | +--------+ + + + + | 04/02/ | Episode | [facility] | Teresa Deleon | | | 2018 | Changes | GASTROENTEROLOGY | M, RN | | | | | [address] | | | | | | [address] [place] | | | | | | [address] | | | | | | [phone] | | | +--------+ + + + [...]
--- OUTSIDE RECORDS SUMMARY | ~2019-01-12 | XMS | Encounter Summary ---
Demographics + + + | Address | [address] | | | [place] [address] | + + + | Home Phone | | + + + | Preferred Language | Unknown | + + + | Marital Status | Single | + + + | Cheondoism Affiliation | Unknown | + + + | Race | Unknown | + + + | Ethnic Group | Unknown | + + + Author + + + | Author | [facility] | | | and Bebetoana | + + + | Organization | [facility] | | | and [place]eto[place] | + + + | Address | Unknown | + + + | Phone | Unavailable | + + + Support + + + + + | Name | Relationship | Address | Phone | + + + + + | Ghazala Watson | KIM | [address] [facility] [facility] | | | | | [place] | | | | | [address] | | + + + + + Care Team Providers + +------+ + | Care Soil Surveyor Name | Role | Phone | + [...] [place] | | | | | [address] [place], [place] | [place] [address] | | | | | [address] | [phone] | | | | | [phone] | | | +--------+ + + + [...]
--- OUTSIDE RECORDS SUMMARY | ~2019-01-12 | XMS | Encounter Summary ---
Demographics + + + | Address | [address] | | | [place] [address] | + + + | Home Phone | | + + + | Preferred Language | Unknown | + + + | Marital Status | Single | + + + | Yazdanism Affiliation | Unknown | + + + | Race | Unknown | + + + | Ethnic Group | Unknown | + + + Author + + + | Author | [facility] | | | and Bebeto[place] | + + + | Organization | [facility] | | | and [place]eto[place] | + + + | Address | Unknown | + + + | Phone | Unavailable | + + + Support + + + + + | Name | Relationship | Address | Phone | + + + + + | Ghazala Watson | KIM | [address] [facility] | | | | | [place] | | | | | [address] | | + + + + + Care Team Providers + +------+ + | Care Resident Care Supervisor Name | Role | Phone | [...] | | | | | | | [place] | | | | | | | ESOPHAGOGAST | | | | | | | RODUODENOSCO | | | | | | | PY TRANSORAL | | | | | | | DIAGNOSTIC | | | | | | | [place] EGD | | | | | | | TRANSORAL | | | | | | | BIOPSY | | | | | | | SINGLE/MULTI | | | | | | | PLE [place] | | | | | | | [...] + + + + | 04/04/ | [facility] | [facility] | Jaye Owen | Gastroesophageal | | 2018 | Encounter | MED CTR MP INTRA OP | MD Mohan [address] | reflux disease | | | | [address] | [address] [place] | without esophagitis | | | | [place], [place] | [place] [address] | | | | | [address] | [phone] | | | | | [phone] | | | +--------+ + + + [...] (swallow). | | | | | | [id number]-vspiigiz-l | (RECIPE = 1:1:1 | | | [...] 04/04/2017 | PROVATION | | 4:16 PMMRN: [id number] #: [id number] of : | | | 1970Admit Type: AmbulatoryAge: 46Room: [facility] 01Gender: FemaleNote | | | Status: FinalizedAttending MD: JAYE OWEN , MDProcedure: | | | Upper GI endoscopyIndications: Dysphagia, | | | HeartburnProviders: JAYE OWEN MD, Rakel Willson, | | | RNKimberly, Medical Delivery Driver, Efrain Berry | | | MD Jl (Anesthesia Staff)Referring MD: Adrienne Palacio, | | | MARKETING REPRESENTATIVE (Referring MD)Medicines: Monitored Anesthesia | | | [...] On: | | | 04/04/2017 4:16 PM [facility], [address] | | | [place] [address] | | | - Normal duodenal bulb [...] On: 04/04/2017 4:16 PM | | | [facility], [address] [place], [place] | | | [address] | | + + -+ + +---------+ [...] | 1.010, 1.015, | | | | [place], | | 1.020, 1.025 | | | | POC | | | | | + + + + + + | Lot Number | [id number] | | | | + + + [...] glandular tissue as | | | sampled. CLR:[facility]:C2NR GROSS DESCRIPTION: Received in three [...] | | | submitted, all in (C1). ka:CLR:[facility] PERFORMING LABORATORY: Tissue | | | processing and slide preparation were performed by [employer] | | | [employer], [facility] [address] [facility] [address] [facility], [place] [address] | | | (Rayon Tester: Dougie Cline M.D. CLIA#: [id number]). | | | Professional interpretation was performed by [employer], [address], [place] [address] (Rayon Tester: Dougie | | | Rosalinda Cline; CLIA#: [id number]). Diagnostician: | | | Radames Staples MD [...]
--- OUTSIDE RECORDS SUMMARY | ~2019-01-12 | XMS | Encounter Summary ---
Demographics + + + | Address | [address] | | | [place] [address] | + + + | Home Phone | | + + + | Preferred Language | Unknown | + + + | Marital Status | Single | + + + | Quaker Affiliation | Unknown | + + + | Race | Unknown | + + + | Ethnic Group | Unknown | + + + Author + + + | Author | [facility] | | | and [place]ebetoana | + + + | Organization | [facility] | | | and [...] [place] | | | | | [address] | | + + + + + Care Team Providers + +------+ + | Care Toolroom Attendant Name | Role | Phone | + [...] [place] | | | | | | [address] | | | | | | [phone] | | | +--------+ + + + [...]
--- OUTSIDE RECORDS SUMMARY | ~2019-01-12 | XMS | Encounter Summary ---
Demographics + + + | Address | [address] | | | [place] [address] | + + + | Home Phone | | + + + | Preferred Language | Unknown | + + + | Marital Status | Single | + + + | Oriental Orthodox Affiliation | Unknown | + + + | Race | Unknown | + + + | Ethnic Group | Unknown | + + + Author + + + | Author | [facility] | | | and Bebetoana | + + + | Organization | [facility] | | | [...] [place] | | | | | [address] | | + + + + + Care Team Providers + +------+ + | Care Mines Inspector Name | Role | Phone | + [...] | | | | | | | [place] | | | | | | | ESOPHAGOGAST | | | | | | | RODUODENOSCO | | | | | | | PY TRANSORAL | | | | | | | DIAGNOSTIC | | | | | | | [place] EGD | | | | | | | TRANSORAL | | | | | | | BIOPSY | | | | | | | SINGLE/MULTI | | | | | | | PLE [place] | | | | | | | [...] + + + + | 04/04/ | [facility] | [facility] | Jaye Owen | Gastroesophageal | | 2018 | Encounter | MED CTR MP INTRA OP | MD Mohan [address] | reflux disease | | | | [address] | [address] [place] | without esophagitis | | | | [place], [place] | [place] [address] | | | | | [address] | [phone] | | | | | [phone] | | | +--------+ + + + [...] (swallow). | | | | | | smegndsgb-knlazlxm-c | (RECIPE = 1:1:1 | | | [...] 04/04/2017 | PROVATION | | 4:16 PMMRN: [id number] #: [id number] of : | | | 1970Admit Type: AmbulatoryAge: 46Room: [facility] 01Gender: FemaleNote | | | Status: FinalizedAttending MD: JAYE OWEN , MDProcedure: | | | Upper GI endoscopyIndications: Dysphagia, | | | HeartburnProviders: JAYE OWEN MD, Rakel Willson, | | | RNKimberly, Media Strategist, Efrain Berry | | | MD Jl (Anesthesia Staff)Referring MD: Adrienne Palacio, | | | SENIOR EXECUTIVE COMPENSATION ANALYST (Referring MD)Medicines: Monitored Anesthesia | | | [...] On: | | | 04/04/2017 4:[address] [facility], [address] | | | [place] [address] | | | - Normal duodenal bulb [...] On: 04/04/2017 4:16 PM | | | [facility], [address] [place], [place] | | | [address] | | + + -+ + +---------+ [...] | 1.010, 1.015, | | | | [place], | | 1.020, 1.025 | | | | POC | | | | | + + + + + + | Lot Number | [id number] | | | | + + + [...] glandular tissue as | | | sampled. CLR:[facility]:C2NR GROSS DESCRIPTION: Received in three | [...] | | | submitted, all in (C1). ka:CLR:[facility] PERFORMING LABORATORY: Tissue | | | processing and slide preparation were performed by [employer] | | | [employer], [facility] [address] [facility], [place] [address] | | | (Hydraulic Design Engineer: Dougie Cline M.D. CLIA#: [id number]). | | | Professional interpretation was performed by [employer], [address] | | [address], [place] [address] (Hydraulic Design Engineer: Dougie | | | Rosalinda Cline; CLIA#: [id number]). Diagnostician: | | | Radames Staples MD [...]
--- OUTSIDE RECORDS SUMMARY | ~2019-01-12 | XMS | Encounter Summary ---
Demographics + + + | Address | [address] | | | [place] [address] | + + + | Home Phone [...] | Author | [facility] | | | and Bebetoana | + + + | Organization | [facility] | | | and [...] [place] | | | | | [address] | | + + + + + Care Team Providers + +------+ + | Care Cooking Teacher Name | Role | Phone | + [...] [place] | School/Work | | | | [place] [address] [place], | [address] | | | | | [place] [address] | [address] | | | | | [phone] | | | +--------+ + + + [...]
--- OUTSIDE RECORDS SUMMARY | ~2019-01-12 | XMS | Encounter Summary ---
Demographics + + + | Address | [address] | | | [place] [address] | + + + | Home Phone [...] Author + + + | Author | [facility] | | | and Bebetoana | + + + | Organization | [facility] | | | and [place]eto[place] | + + + | Address | Unknown | + + + | Phone | Unavailable | + + + Support + + + + + | Name | Relationship | Address | Phone | + + + + + | Ghazala Watson | KIM | [address] [facility] | | | | | [place] | | | | | [address] | | + + + + + Care Team Providers + +------+ + | Care Oracle Fusion Developer Name | Role | Phone | [...] [place] | School/Work | | | | [place], | [address] | | | | | [place] [address] | [address] | | | | | [phone] | | | +--------+ + + + [...]
--- OUTSIDE RECORDS SUMMARY | ~2019-01-12 | XMS | Encounter Summary ---
Demographics + + + | Address | [address] | | | [place] [address] | + + + | Home Phone | | + + + | Preferred Language | Unknown | + + + | Marital Status | Single | + + + | Scientology Affiliation | Unknown | + + + | Race | Unknown | + + + | Ethnic Group | Unknown | + + + Author + + + | Author | [facility] | | | and [place]ebeto[place] | + + + | Organization | [facility] | | | and Bebetoana | + + + | Address | Unknown | + + + | Phone | Unavailable | + + + Support + + + + + | Name | Relationship | Address | Phone | + + + + + | Ghazala Watson | KIM | [address] | | | | | [place] | | | | | [address] | | + + + + + Care Team Providers + +------+ + | Care Wood Web Weaving Machine Operator Name | Role | Phone [...] + + | 04/24/ | Telephone | [facility] | Gibson Tate | Medication Question | | 2017 | | GASTROENTEROLOGY | MD Mohan [address] | | | | | [address] | [address] [place] | | | | | [address] [place], [place] | [place] [address] | | | | | [address] | [phone] | | | | | [phone] | | | +--------+ + + + [...]
--- OUTSIDE RECORDS SUMMARY | ~2019-01-12 | XMS | Encounter Summary ---
Demographics + + + | Address | [address] | | | [place] [address] | + + + | Home Phone | | + + + | Preferred Language | Unknown | + + + | Marital Status | Single | + + + | Voodoo Affiliation | Unknown | + + + | Race | Unknown | + + + | Ethnic Group | Unknown | + + + Author + + + | Author | [facility] | | | and Bebetoana | + + + | Organization | [facility] | | | and Bebetoana [...] [place] | | | | | [address] | | + + + + + Care Team Providers + +------+ + | Care Vice President Of Nursing Name | Role | Phone | + +------+ + | Adrienne Palacio MOLDER CLOSED MOLDS | PCP | | + +------+ + [...] [place] | | | | | [address] [place], [place] | [place] [address] | | | | | [address] | [phone] | | | | | [phone] | | | +--------+ + + + [...]
--- OUTSIDE RECORDS SUMMARY | ~2019-01-12 | XMS | Encounter Summary ---
Demographics + + + | Address | [address] | | | [place] [address] | + + + | Home Phone | | + + + | Preferred Language | Unknown | + + + | Marital Status | Single | + + + | Buddhism Affiliation | Unknown | + + + | Race | Unknown | + + + | Ethnic Group | Unknown | + + + Author + + + | Author | [facility] | | | and Bebeto[place] | + + + | Organization | [facility] | | | and [place] | + + + | Address | Unknown | + + + | Phone | Unavailable | + + + Support + + + + + | Name | Relationship | Address | Phone | + + + + + | Ghazala Watson | KIM | [address] [facility] [address] [facility] [address] [facility] | | | | | [place] | | | | | [address] | | + + + + + Care Team Providers + +------+ + | Care Wax Room Supervisor Name | Role | Phone | [...] | | | [address] | [address] | | | | | [address] | | | | | | [phone] | | | +--------+ + + + [...]
--- OUTSIDE RECORDS SUMMARY | ~2019-01-12 | XMS | Clinical Summary ---
Demographics + + + | Address | [address] | | | [place] [address] | + + + | Home Phone | | + + + | Preferred Language | Unknown | + + + | Marital Status | Single | + + + | Buddhism Affiliation | Unknown | + + + | Race | Unknown | + + + | Ethnic Group | Unknown | + + + Author + + + | Author | [facility] | | | and Bebetoana | + + + | Organization | [facility] | | | and [place] | + + + | Address | Unknown | + + + | Phone | Unavailable | + + + Support + + + + + | Name | Relationship | Address | Phone | + + + + + | Ghazala Watson | KIM | [address] [facility] [facility] | | | | | [place] | | | | | [address] | | + + + + + Care Team Providers + +------+ + | Care Mat Sewer Name | Role | Phone | + [...] | | 18 | | | | [id number] | (RECIPE = 1:1:1 | | | [...] | [employer] | [employer] | [id number] | 01/05/ | [phone] | | [employer] | | MEDICAID HMO [...] [place] | | | 0 (Home) | [phone] | + +--------+ +--------+ + + Advance Directives + + + + + | Type | Date Recorded | Patient | Explanation | | | | Bulk Sealer | | + + + + + | Power of | | | | | Visual Merchandising Director | | | | + + + + + | Advance | 04/04/2017 1:17 | | | | Directive | PM | | | + + + + +
--- OUTSIDE RECORDS SUMMARY | ~2019-01-12 | XMS | Encounter Summary ---
Demographics + + + | Address | [address] | | | [place] [address] | + + + | Home Phone | | + + + | Preferred Language | Unknown | + + + | Marital Status | Single | + + + | Amish Affiliation | Unknown | + + + | Race | Unknown | + + + | Ethnic Group | Unknown | + + + Author + + + | Author | [facility] | | | and Bebetoana | + + + | Organization | [facility] | | | and [place] | + + + | Address | Unknown | + + + | Phone | Unavailable | + + + Support + + + + + | Name | Relationship | Address | Phone | + + + + + | Ghazala Watson | KIM | [address] [facility] [facility] | | | | | [place] | | | | | [address] | | + + + + + Care Team Providers + +------+ + | Care Recruitment Intern Name | Role | Phone | + [...] | | | [address] | [address] | | | | | [address] | | | | | | [phone] | | | +--------+ + + + [...]
--- OUTSIDE RECORDS SUMMARY | ~2019-01-12 | XMS | Encounter Summary ---
Demographics + + + | Address | [address] | | | [place] [address] | + + + | Home Phone | | + + + | Preferred Language | Unknown | + + + | Marital Status | Single | + + + | Confucianist Affiliation | Unknown | + + + | Race | Unknown | + + + | Ethnic Group | Unknown | + + + Author + + + | Author | [facility] | | | and [place] | + + + | Organization | [facility] | | [...] - [place] | | | | | [facility] [place] | | | | | [address] | | + + + + + Care Team Providers + +------+ + | Care Baker Bread Name | Role | Phone | + +------+ + PCP | Unavailable | + +------+ + Encounter Details +--------+ + + + + | Date | Type | Department | Care Team | Description | +--------+ + + + + | 12/31/ | [facility] | [facility] | Will Rangel, | | | 2005 | Encounter | MED CTR MP INTRA OP | [address] | | | | | [address] | [place] | | | | | [place] | [address] | | | | | [address] | | | | | | [phone] | | | +--------+ + + + [...]
--- OUTSIDE RECORDS SUMMARY | ~2019-01-12 | XMS | Encounter Summary ---
Demographics + + + | Address | [address] | | | [place] [address] | + + + | Home Phone | | + + + | Preferred Language | Unknown | + + + | Marital Status | Single | + + + | Adventism Affiliation | Unknown | + + + | Race | Unknown | + + + | Ethnic Group | Unknown | + + + Author + + + | Author | [facility] | | | and [place] | + + + | Organization | [facility] | | | and [place] | + + + | Address | Unknown | + + + | Phone | Unavailable | + + + Support + + + + + | Name | Relationship | Address | Phone | + + + + + | Ghazala Watson | KIM | [address] | | | | | [place] | | | | | [address] | | + + + + + Care Team Providers + +------+ + | Care Microbiological Lab Technician Name | Role | Phone | [...] | | | | [place]urb[place] | [place] [address] | [address] Phone: | | | | | of skin | Phone: | [phone] | | | | | sensation | [phone] | Fax: | | | | | Procedures | Fax: | [phone] | | | | | [place] MOTOR | [phone] | | | | | | &/SENS [...] | shoulder pain | | | | [address], | [place], [place] | (Primary Dx); Carpal | | | | [place] [address] | [address] | tunnel syndrome on | | | | [phone] | | left | +--------+ + + [...] Walker MD - 03/20/2015 11:58 AM PST [facility] Musculoskeletal, Sports and Spine, Physiatry [address] [address] Test Date: 03/20/2015 Patient Name: Loraine Lynn : 1970 Physician: Hipolito Walker MD MR #: [id number] Sex: Female Referring Physician: Errol Stauffer MD [...] hesitate to call. Hipolito Walker MD Fellow, [employer]. documented [...]
[~2019-01-12 20:28] MED LIST changes: +IPRAT-ALBUT 0.5-3 ML INH; +MOTRIN IB200 MG PO; +SUCRALFATE1 GM PO
[2019-01-12] MEDS ORDERED: NAPROXEN250 MG PO (20:48)
== END 2019-01-12 21:34 | disposition home or self-care (01) ==
LOC: ED 20:28
DX: S80.272A Other superficial bite of left knee, initial encounter (principal); S71.152A Open bite, left thigh, initial encounter; W54.0XXA Bitten by dog, initial encounter; J45.909 Unspecified asthma, uncomplicated; F17.200 Nicotine dependence, unspecified, uncomplicated; Z79.899 Other long term (current) drug therapy
CPT/HCPCS: 90471; 90715; 99283-25

== ENCOUNTER 2019-01-16 11:44 | Emergency (ER) | payer OTHER ==
[~2019-01-16] VITALS: Ht 162.6 cm; Wt 65.9 kg
--- OUTSIDE RECORDS SUMMARY | ~2019-01-16 | XMS | Encounter Summary ---
Demographics + + + | Address | [address] | | | [place] [address] | + + + | Home Phone | | + + + | Preferred Language | Unknown | + + + | Marital Status | Single | + + + | Restorationist Affiliation | Unknown | + + + | Race | Unknown | + + + | Ethnic Group | Unknown | + + + Author + + + | Author | [facility] | | | and [place] | + + + | Organization | [facility] | | | and [place] | + + + | Address | Unknown | + + + | Phone | Unavailable | + + + Support + + + + + | Name | Relationship | Address | Phone | + + + + + | Ghazala Watson | KIM | [address] | | | | | [place] | | | | | [address] | | + + + + + Care Team Providers + +------+ + | Care Motion Picture Operator Name | Role | Phone | + +------+ + | Adrienne Palacio NP | PCP | | + +------+ + Reason for Visit + + + | Reason | Comments | + + + | Medication Question | | + + + Encounter Details +--------+ + + + + | Date | Type | Department | Care Team | Description | +--------+ + + + + | 04/24/ | Telephone | [facility] | Gibson Tate | Medication Question | | 2017 | | GASTROENTEROLOGY | MD Mohan [address] | | | | | [address] [place] | [address] [place] | | | | | [address] [place], [place] | [place] [address] | | | | | [address] | [phone] | | | | | [phone] | | | +--------+ + + + + Social History + + + +--------+ + | Tobacco Use | Types | Packs/Day | Years | Date | | | | | Used | | + + + +--------+ + | Current Every Day | Cigarettes | 0.5 | 29 | Started: 1987 | | Smoker | | | | [...] recent travel history available. | + + documented as of this encounter Plan of Treatment Not on filedocumented as of this encounter Visit Diagnoses + + | Diagnosis | + + | Gastroesophageal reflux disease without esophagitis - Primary Esophageal reflux | + + documented in this encounter"
--- OUTSIDE RECORDS SUMMARY | ~2019-01-16 | XMS | Encounter Summary ---
Demographics + + + | Address | [address] | | | [place] [address] | + + + | Home Phone | | + + + | Preferred Language | Unknown | + + + | Marital Status | Single | + + + | Jehovah'S Witness Affiliation | Unknown | + + + | Race | Unknown | + + + | Ethnic Group | Unknown | + + + Author + + + | Author | [facility] | | | and [place] | + + + | Organization | [facility] | | | and [place] | + + + | Address | Unknown | + + + | Phone | Unavailable | + + + Support + + + + + | Name | Relationship | Address | Phone | + + + + + | Ghazala Watson | KIM | [address] | | | | | [place] | | | | | [address] | | + + + + + Care Team Providers + +------+ + | Care Grade Recorder Name | Role | Phone | + +------+ + | Adrienne Palacio NP | PCP | | + +------+ + Reason for Visit Auth/Cert +--------+--------+ + + + + | Status | Reason | Specialty | Diagnoses / | Referred By | Referred To | | | | | Procedures | Contact | Contact | +--------+--------+ + + + + | | | | Diagnoses | | | | | | | | | | | | | | Gastroesopha | | | | | | | geal reflux | | | | | | | disease, | | | | | | | esophagitis | | | | | | | presence not | | | | | | | specified | | | | | | | (K21.9), | | | | | | | Cannabis | | | | | | | use, | | | | | | | uncomplicate | | | | | | | d (F12.90) | | | | | | | Procedures | | | | | | | AR | | | | | | | ESOPHAGOGAST | | | | | | | RODUODENOSCO | | | | | | | PY TRANSORAL | | | | | | | DIAGNOSTIC | | | | | | | AR EGD | | | | | | | TRANSORAL | | | | | | | BIOPSY | | | | | | | SINGLE/MULTI | | | | | | | PLE AR | | | | | | | ANESTHESIA | | | | | | | UPPER GI | | | | | | | ENDOSCOPIC | | | | | | | PX NOS EGD | | | +--------+--------+ + + + + Encounter Details +--------+ + + + + | Date | Type | Department | Care Team | Description | +--------+ + + + + | 04/04/ | [facility] | [facility] | Jaye Owen | Gastroesophageal | | 2018 | Encounter | MED CTR MP INTRA OP | MD Mohan [address] | reflux disease | | | | [address] | [address] [place] | without esophagitis | | | | [place], [place] | [place] [address] | | | | | [address] | [phone] | | | | | [phone] | | | +--------+ + + + [...] + + documented as of this encounter Last Filed Vital Signs + + + [...] | | + + + + + documented in this encounter Medications at Time of Discharge + + + +---------+ + + | Medication | Sig | Dispensed | Refills | Start | End Date | | | | | | Date | | + + + +---------+ + + | albuterol | Inhale 2 puffs into | | 0 | | | | (VENTOLIN HFA) 90 | the lungs every 6 | | | | | | mcg/puff inhaler | hours as needed for | | | | | | | Wheezing. | | | | | + + + +---------+ + + | albuterol 2.5 mg/3 | Take 2.5 mg by | | 0 | | | | mL nebulizer | nebulization every 6 | | | | | | solution | hours as needed for | | | | | | | Wheezing. | | | | | + + + +---------+ + + | | Take 5 mLs by mouth | 120 mL | 3 | 03/21/19 | | | diphenhydrAMINE-visc | every 6 hours as | | | 18 | | | | needed (swallow). | | | | | | ovfadbtjq-pclowowg-i | (RECIPE = 1:1:1 | | | | | | agnesium-simethicone | mixture of Maalox, | | | | | | (MIRACLE MOUTHWASH) | diphenhydrAMINE, | | | | | | suspension | viscous lidocaine) | | | | | + + + +---------+ + + | metroNIDAZOLE | take 1 tablet by | | 0 | 02/01/20 | | | (FLAGYL) 500 MG | mouth twice a day | | | 18 | | | tablet | | | | | | + + + +---------+ + + | pantoprazole | Take 2 tablets by | 40 | 0 | 03/21/19 | | | (PROTONIX) 40 mg | mouth 2 times daily | tablet | | 18 | | | tablet | (before meals). | | | | | + + + +---------+ + + documented as of this encounter Plan of Treatment Not on filedocumented as of this encounter Procedures + +--------+ + + + | Procedure Name | Priori | Date/Time | Associated Diagnosis | Comments | | | ty | | | | + +--------+ + + + | EGD | Routin | 04/04/2017 | | Results for this | | | e | 4:16 PM | | procedure are in the | | | | PST | | results section. | + +--------+ + + + | EGD | | 04/04/2017 | Gastroesophageal | | | | | 4:15 PM | reflux disease, | | | | | PST | esophagitis presence | | | | | | not specified | | | | | | (K21.9), Cannabis | | | | | | use, uncomplicated | | | | | | (F12.90) | | + +--------+ + + + | POCT TEST, | Routin | 04/04/2017 | | Results for this | | URINE, QUAL | e | 2:12 PM | | procedure are in the | | | | PST | | results section. | + +--------+ + + + | SURGICAL PATHOLOGY | Routin | 04/04/2017 | | Results for this | | EXAM | e | 12:00 AM | | procedure are in the | | | | PST | | results section. | + +--------+ + + + documented in this encounter Results EGD (04/04/2017 4:16 PM PST) + + | Specimen | + + | | + + + + -+ | Narrative | Performed At | + + -+ | | [facility] | | GastroenterologyPatient Name: Loraine LynnProdomitila Date: 04/04/2017 | [facility] | | 4:16 PMMRN: [id number] #: [id number] of : | | | 1970Admit Type: AmbulatoryAge: 46Room: [facility]Gender: FemaleNote | | | Status: FinalizedAttending MD: JAYE OWEN , MDProcedure: | | | Upper GI endoscopyIndications: Dysphagia, | | | HeartburnProviders: JAYE OWEN MD, Rakel Willson, | | | RNKimberly, Metallurgical Analyst, Efrain Berry | | | MD Jl (Anesthesia Staff)Referring MD: Adrienne Palacio, | | | TERRITORY SALES PROFESSIONAL (Referring MD)Medicines: Monitored Anesthesia | | | CareComplications: No immediate complications.Procedure: | | | Pre-Anesthesia Assessment: - Prior to the procedure, a History | | | and Physical was performed, and patient medications and | | | allergies were reviewed. The patient is competent. The risks | | | and benefits of the procedure and the sedation options and | | | risks were discussed with the patient. All questions were | | | answered and informed consent was obtained. Patient identification and | | | proposed procedure were verified by the physician, the nurse | | | and the anesthesiologist in the pre-procedure area in the | | | procedure room. Mental Status Examination: alert and oriented. | | | Airway Examination: Mallampati Class II (the uvula but not | | | tonsillar pillars visualized). Respiratory Examination: clear | | | to auscultation. CV Examination: normal. Prophylactic | | | Antibiotics: The patient does not require prophylactic antibiotics. | | | Prior Anticoagulants: The patient has taken no previous | | | anticoagulant or antiplatelet agents. ASA Grade Assessment: III | | | - A patient with severe systemic disease. After reviewing the | | | risks and benefits, the patient was deemed in satisfactory | | | condition to undergo the procedure. The anesthesia plan was to | | | use monitored anesthesia care (MAC). Immediately prior to | | | administration of medications, the patient was re-assessed for | | | adequacy to receive sedatives. The heart rate, respiratory rate, | | | oxygen saturations, blood pressure, adequacy of pulmonary | | | ventilation, and response to care were monitored throughout the | | | procedure. The physical status of the patient was re-assessed | | | after the procedure. After obtaining informed consent, the | | | endoscope was passed under direct vision. Throughout the | | | procedure, the patient's blood pressure, pulse, and oxygen | | | saturations were monitored continuously. The Endoscope was | | | introduced through the mouth, and advanced to the second part of | | | duodenum. The upper GI endoscopy was accomplished without | | | difficulty. The patient tolerated the procedure well.Findings: | | | The upper third of the esophagus, middle third of the esophagus, | | | lower third of the esophagus and gastroesophageal junction | | | were normal. Biopsies were obtained from the proximal and | | | distal esophagus with cold forceps for histology of suspected | | | eosinophilic esophagitis. The Z-line was regular and was found | | | 39 cm from the incisors. The cardia, gastric fundus, gastric | | | body, gastric antrum and pylorus were normal. Biopsies were | | | taken with a cold forceps for histology. The cardia and gastric | | | fundus were normal on retroflexion. The duodenal bulb and second | | | portion of the duodenum were normal.Impression: - Normal upper | | | third of esophagus, middle third of esophagus, lower third of | | | esophagus and gastroesophageal junction. Biopsied. - Z-line | | | regular, 39 cm from the incisors. - Normal cardia, gastric | | | fundus, gastric body, antrum and pylorus. Biopsied. - | | | Normal duodenal bulb and second portion of the | | | duodenum.Recommendation: - Await pathology results. - | | | Continue present medications. - Resume previous diet. - | | | The findings and recommendations were discussed with the | | | patient.JAYE OWEN MD04/04/2017 4:37:04 PMThis report has been | | | signed electronically.Number of Addenda: 0Note Initiated On: | | | 04/04/2017 4:16 PM [facility], [address] | | | [place] [address] | | | - Normal duodenal bulb and second portion of the duodenum. | | |Recommendation: | | | - Await pathology results. | | | - Continue present medications. | | | - Resume previous diet. | | | - The findings and recommendations were discussed with the patient. | | |JAYE OWEN MD | | |04/04/2017 4:37:04 PM | | |This report has been signed electronically. | | |Number of Addenda: 0 | | |Note Initiated On: 04/04/2017 4:16 PM | | | [facility], [address] [place], [place] | | | [address] | | + + -+ + +---------+ + + | Performing | Address | City/State/Zipcode | Phone Number | | Organization | | | | + +---------+ + + | [facility] | | | | + +---------+ + + POCT Test, Urine, QUAL (04/04/2017 2:12 PM PST) + + + + + + | Component | Value | Ref Range | Performed | Pathologist | | | | | At | Signature | + + + + + + | | Negative | Negative | | | | Test, | | | | | | Urine, POC | | | | | + + + + + + | Internal QC | Acceptable | Acceptable | | | + + + + + + | Specific | | 1.010, 1.015, | | | | [place], | | 1.020, 1.025 | | | | POC | | | | | + + + + + + | Lot Number | [id number] | | | | + + + + + + | Expiration | 2018-06-04 | | | | | Date | | | | | + + + + + + + + | Specimen | + + | Urine | + + Surgical Pathology Exam (04/04/2017 12:00 AM PST) + + | Specimen | + + | | + + + + + | Narrative | Performed At | + + + | SPECIMEN(S): A STOMACH BIOPSY SPECIMEN(S): B DISTAL ESOPHAGEAL | [facility] | | BIOPSY SPECIMEN(S): C PROXIMAL ESOPHAGEAL BIOPSY SPECIMEN SOURCE: | [facility] | | A. STOMACH BIOPSY B. DISTAL ESOPHAGEAL BIOPSY C. PROXIMAL | | | ESOPHAGEAL BIOPSY CLINICAL HISTORY: K21.9 (gastroesophageal | | | reflux disease without esophagitis), F12.20 (cannabis dependence, | | | uncomplicated) MICROSCOPIC DESCRIPTION: Histologic sections of | | | all submitted blocks are examined by light microscopy. These findings, | | | together with the gross examination, support the pathologic | | | diagnosis. FINAL PATHOLOGIC DIAGNOSIS: A. Stomach, biopsy: - | | | Fragments of gastric mucosa with foci of mild chronic inflammation, | | | vascular congestion, and features suggestive of proton pump inhibitor | | | effect. - No Helicobacter-type organisms identified. - Negative | | | for intestinal metaplasia. B. Esophagus, distal, biopsy: - | | | Fragments of squamous epithelium with foci of chronic inflammation | | | and reactive epithelial changes. - No evidence of significantly | | | increased intraepithelial eosinophils. - Negative for glandular | | | tissue as sampled. C. Esophagus, proximal, biopsy: - Fragments | | | of squamous epithelium with foci of chronic inflammation and reactive | | | epithelial changes. - No evidence of significantly increased | | | intraepithelial eosinophils. - Negative for glandular tissue as | | | sampled. CLR:[place]:C2NR GROSS DESCRIPTION: Received in three | | | parts. A. Received in formalin labeled "Loraine Lynn" and "stomach | | | bx" on the requisition are high grade pink and maddxo colored tissue | | | fragments measuring from <0.1-0.4 cm, submitted, all into (A1). B. | | | Received in formalin labeled "Loraine Lynn" and "distal esophagus bx" | | | on the requisition are four gudino-maddox tissue fragments measuring from | | | 0.35-0.9 cm, submitted, all in (B1). C. Received in formalin | | | labeled "Loraine Lynn" and "proximal esophageal bx" on the requisition | | | are four gudino-maddox tissue fragments measuring from 0.3-0.4 cm, | | | submitted, all in (C1). ka:CLR:[place] PERFORMING LABORATORY: Tissue | | | processing and slide preparation were performed by [facility] | | | Original, [facility] [address] [facility] [address], [place] [address] | | | (Senior Storage Administrator: Dougie Cline M.D. CLIA#: [id number]). | | | Professional interpretation was performed by [facility], [address], [place] [address] (Senior Storage Administrator: Dougie | | | Rosalinda Cline; CLIA#: [id number]). Diagnostician: | | | Radames Staples MD Pathologist Electronically Signed | | | 04/08/2017 | | + + + + +---------+ + + | Performing | Address | City/State/Zipcode | Phone Number | | Organization | | | | + +---------+ + + | [facility] | | | | | [facility] | | | | + +---------+ + + documented in this encounter Visit Diagnoses + + | Diagnosis | + + | Gastroesophageal reflux disease without esophagitis Esophageal reflux | + + | Asthmatic bronchitis Unspecified asthma | + + documented in this encounter Administered Medications + +--------+---------+------+------+------+ | Medication Order | MAR | Action | Dose | Rate | Site | | | Action | Date | | | | + +--------+---------+------+------+------+ + +---+ | albuterol 2.5 mg/3 mL nebulizer | | | solution 2.5 mg 2.5 mg, | | | Nebulization, ONCE PRN, Wheezing, | | | Starting Fri04/04/17 at 1636, | | | For 1 dose, Notify anesthesia if | | | patient is wheezing and does not | | | have a history of asthma or COPD | | | or current smoking., | | | Post-op/Phase II | | + +---+ | | | + +---+ | albuterol-ipratropium (DUONEB) | | | 2.5-0.5 mg/3 mL nebulizer | | | solution 3 mL 3 mL, | | | Nebulization, ONCE PRN, Wheezing, | | | Starting Fri04/04/17 at 1636, | | | For 1 dose, Pre-op | | + +---+ | | | + +---+ | albuterol-ipratropium (DUONEB) | | | 2.5-0.5 mg/3 mL nebulizer | | | solution 3 mL 3 mL, | | | Nebulization, ONCE PRN, Wheezing, | | | Shortness of Breath, Starting | | | Fri04/04/17 at 1636, For 1 dose, | | | Post-op/Phase II | | + +---+ | | | + +---+ | dextrose 50% injection 12.5-25 | | | g 12.5-25 g, Intravenous, EVERY | | | 15 MIN PRN, Low Blood Sugar, Give | | | 12.5g (25 mL) IV if blood | | | glucose 50-69 mg/dL. Give 25g | | | (50 mL) IV if blood glucose < 50, | | | Starting Fri04/04/17 at 1636, | | | Repeat in 15 min if blood glucose | | | remains < 70 mg/dL. Repeat | | | blood glucose in 30 min once | | | blood glucose > 70., Pre-op | | + +---+ | | | + +---+ + +---------+ +---+-------+---+ | lactated ringers (LR) infusion | New Bag | 04/04/19 | | 100 | | | at 100 mL/hr, Intravenous, | | 18 2:14 | | mL/hr | | | CONTINUOUS, Starting Fri04/04/17 | | PM PST | | | | | at 1430, Pre-op | | | | | | + +---------+ +---+-------+---+ + +---+ | | | + +---+ | ondansetron (ZOFRAN) injection | | | 4 mg 4 mg, Intravenous, ONCE | | | PRN, Nausea, Vomiting, Starting | | | Fri04/04/17 at 1636, For 1 dose, | | | Post-op/Phase II | | + +---+ | | | + +---+ | ondansetron (ZOFRAN) injection | | | 4 mg 4 mg, Intravenous, ONCE | | | PRN, Nausea, Starting 04/04/17 | | | at 1636, For 1 dose, Pre-op | | + +---+ | | | + +---+ | ondansetron (ZOFRAN) injection | | | 4 mg 4 mg, Intravenous, ONCE | | | PRN, Nausea, Starting Fri04/04/17 | | | at 1636, For 1 dose, | | | Post-op/Phase II | | + +---+ | | | + +---+ | scopolamine (TRANSDERM-SCOP) 1 | | | mg/3 days 1 patch 1 patch, | | | Transdermal, PRN, adult patients | | | with history of PONV, Starting | | | Fri04/04/17 at 1636, For 1 dose, | | | PRN for adult patients <65 yo | | | with history of PONV. Hold for | | | patients with glaucoma, dementia, | | | altered mental status, or | | | history of allergy to | | | Scopolamine. Apply to mastoid | | | process behind ear., Pre-op | | + +---+ | | | + +---+ | sodium chloride 0.9% (NS) | | | infusion at 10-100 mL/hr, | | | Intravenous, CONTINUOUS, Starting | | | Fri04/04/17 at 1700, TKO. Use | | | this instead of LR if patient is | | | on dialysis., Pre-op | | + +---+ | | | + +---+ documented in this encounter
--- OUTSIDE RECORDS SUMMARY | ~2019-01-16 | XMS | Encounter Summary ---
Demographics + + + | Address | [address] | | | [place] [address] | + + + | Home Phone | | + + + | Preferred Language | Unknown | + + + | Marital Status | Single | + + + | Taoist Affiliation | Unknown | + + + | Race | Unknown | + + + | Ethnic Group | Unknown | + + + Author + + + | Author | [facility] | | | and [place] | + + + | Organization | [facility] | | | and [place] | + + + | Address | Unknown | + + + | Phone | Unavailable | + + + Support + + + + + | Name | Relationship | Address | Phone | + + + + + | Ghazala Watson | KIM | [address] [facility] | | | | | [place] | | | | | [address] | | + + + + + Care Team Providers + +------+ + | Care Bailer Operators Supervisor Name | Role | Phone | + +------+ + | Adrienne Palacio NP | PCP | | + +------+ + Reason for Visit + + + | Reason | Comments | + + + | Shoulder Pain | Left shoulder pain | + + + Service/Procedure (Routine) +--------+--------+ + + + + | Status | Reason | Specialty | Diagnoses / | Referred By | Referred To | | | | | Procedures | Contact | Contact | +--------+--------+ + + + + | Closed | | Physical | Diagnoses | Xiomy, | Aaron, | | | | Medicine and | | Errol Beasley, | Hipolito Monroy MD | | | | Rehabilitatio | Radiculopath | [address] | [address] | | | | n | y, cervical | [address] | [address] [place] | | | | | region | [place], | [place], [place] | | | | | Disturbance | [place] [address] | [address] Phone: | | | | | of skin | Phone: | [phone] | | | | | sensation | [phone] | Fax: | | | | | Procedures | Fax: | [phone] | | | | | [place] | [phone] | | | | | | &/SENS 1-2 | | | | | | | NRV CNDJ | | | | | | | PRECONF | | | | | | | ELTRODE LIMB | | | | | | | EMG-LUE | | | | | | | left | | | | | | | shoulder | | | | | | | pain | | | +--------+--------+ + + + + Encounter Details +--------+ + + + + | Date | Type | Department | Care Team | Description | +--------+ + + + + | 03/20/ | Procedure | [facility] | Hipolito Walker | Chronic left | | 2015 | visit | PHYSIATRY [address] | TMD [address] | shoulder pain | | | | [facility], | [place], [place] | (Primary Dx); Carpal | | | | [place] [address] | [address] | tunnel syndrome on | | | | [phone] | | left | +--------+ + + + + Social History + +-------+ +--------+------+ | Tobacco Use | Types | Packs/Day | Years | Date | | | | | Used | | + +-------+ +--------+------+ | Current Every Day | | | | | | Smoker | | | | | + +-------+ +--------+------+ + + +---------+ + | Alcohol Use | Drinks/Week | oz/Week | Comments | + + +---------+ + | Not Asked | 0 Standard drinks | 0.0 | | | | or equivalent | | | + + +---------+ [...] + + + | Blood Pressure | 132/64 | 03/20/2015 11:01 AM | | | | | PST | | + + + + + | Pulse | 66 | 03/20/2015 11:01 AM | | | [...] + + + + | Weight | 61.7 kg (136 lb) | 03/20/2015 11:01 AM | | | | | PST | | + + + + + | Height | 163.8 cm (5' 4.5") | 03/20/2015 11:01 AM | | | | | PST | | + + + + + | Body Mass Index | 22.98 | 03/20/2015 11:01 AM | | | | | PST | | + + + + + documented in this encounter Progress Notes Hipolito Walker MD - 03/20/2015 11:58 AM PST [facility] Musculoskeletal, Sports and Spine, Physiatry [address] [address] Test Date: 03/20/2015 Patient Name: Loraine Lynn : 1970 Physician: Hipolito Walker MD MR #: [id number] Sex: Female Referring Physician: Errol Stauffer MD HISTORY: The patient is a very pleasant 44 year-old right-handed female who is being seen today at the request of Dr. Errol Stauffer for complaints of left shoulder pain, left arm weak ness and numbness. She reports that the numbness has only been present on a few occasions a nd only briefly. She denies any recent numbness and the majority of the pain is in the shou lder at this time. The patient does have neck pain and describes pain radiating into the sabine ulder blade posteriorly and down the arm. She does have a history of a prior shoulder surge ry on the left. She was unable to tell me the details of that surgery but it sounds as thou gh it was an arthroscopic rotator cuff repair. She feels that the pain and other issues are related to her shoulder. She denies any history of diabetes, hypothyroidism, cancer, renal failure, alcohol abuse or vitamin deficiency. She has had carpal tunnel surgery on the rig ht in the past. Nerve Conduction Studies Anti Sensory Summary Table Site NR Peak (ms) Norm Peak (ms) P-T Amp (V) Norm P-T Amp Site1 Site2 Delta-P (ms) Dist (cm) Owen (m/s) Norm Owen (m/s) Left Radial Anti Sensory (Base 1st Digit) Wrist 2.4 <3.1 38.2 Wrist Base 1st Digit 2.4 10.0 42 Motor Summary Table Site NR Onset (ms) Norm Onset (ms) O-P Amp (mV) Norm O-P Amp Site1 Site2 Delta-0 (ms) Dist (cm) Owen (m/s) Norm Owen (m/s) Left Median Motor (Abd Poll Brev) Wrist *4.5 <4.2 10.6 >5 Elbow Wrist 3.4 19.0 56 >50 Elbow 7.9 11.0 Left Ulnar Motor (Abd Dig Minimi) Wrist 2.7 <4.2 12.4 >3 B Elbow Wrist 2.6 18.0 69 >53 B Elbow 5.3 12.2 A Elbow B Elbow 1.8 10.0 56 >53 A Elbow 7.1 11.7 Comparison Summary Table Site NR Peak (ms) Norm Peak (ms) P-T Amp (V) Site1 Site2 Delta-P (ms) Norm Delta (ms) Left Median/Ulnar Palm Comparison (Wrist - 8cm) Median Palm *3.1 <2.2 32.7 Median Palm Ulnar Palm *1.4 <0.3 Ulnar Palm 1.7 <2.2 36.7 EMG Side Muscle Nerve Root Ins Act Fibs Psw Amp Dur Poly Recrt Int Pat Comment Left Deltoid Axillary C5-6 Nml Nml Nml Nml Nml 0 Nml Nml Left Biceps Musculocut C5-6 Nml Nml Nml Nml Nml 0 Nml Nml Left Triceps Radial C6-7-8 Nml Nml Nml Nml Nml 0 Nml Nml Left PronatorTeres Median C6-7 Nml Nml Nml Nml Nml 0 Nml Nml Left 1stDorInt Ulnar C8-T1 Nml Nml Nml Nml Nml 0 Nml Nml Nerve Conduction Studies Motor Left/Right Comparison Site L Lat (ms) R Lat (ms) L-R Lat (ms) L Amp (mV) R Amp (mV) L-R Amp (%) Site1 Site2 L Ve l (m/s) R Owen (m/s) L-R Owen (m/s) Median Motor (Abd Poll Brev) Wrist *4.5 10.6 Elbow Wrist 56 Elbow 7.9 11.0 Ulnar Motor (Abd Dig Minimi) Wrist 2.7 12.4 B Elbow Wrist 69 B Elbow 5.3 12.2 A Elbow B Elbow 56 A Elbow 7.1 11.7 Anti Sensory Left/Right Comparison Site L Lat (ms) R Lat (ms) L-R Lat (ms) L Amp (V) R Amp (V) L-R Amp (%) Site1 Site2 L Owen (m/s) R Owen (m/s) L-R Owen (m/s) Radial Anti Sensory (Base 1st Digit) Wrist 2.4 38.2 Wrist Base 1st Digit 42 Comparison Left/Right Comparison Site L Lat (ms) R Lat (ms) L-R Lat (ms) L Amp (V) R Amp (V) L-R Amp (%) Median/Ulnar Palm Comparison (Wrist - 8cm) Median Palm *3.1 32.7 Ulnar Palm 1.7 36.7 NCV FINDINGS: Evaluation of the Left median motor nerve showed prolonged distal onset latency. The Left median/ulnar (palm) comparison nerve showed prolonged distal peak latency (Median Palm) and abnormal peak latency difference (Median Palm-Ulnar Palm). All remaining nerves (as indicat ed in the preceding tables) were within normal limits. EMG FINDINGS: All examined muscles (as indicated in the preceding table) showed no evidence of electrical instability. 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 The fin dings are consistent with those seen in a clinical diagnosis of carpal tunnel syndrome but a t this time she denies any numbness, tingling or pain in the wrist and hand suggesting this may be an incidental finding. The severity of the findings would be graded as moderate. There was no electrodiagnostic evidence of ulnar neuropathy, cervical radiculopathy, periph eral neuropathy or brachial plexopathy. I did discuss with the patient that there are many things that can cause pain such as muscl e and connective tissue injury. It is also possible that the pain is still coming from the cervical spine. It is quite common to have nerve root irritation causing symptoms similar t o those she reports without having findings of cervical radiculopathy detectable on EMG stud ies. If a cervical radiculopathy or radiculitis is still strongly suspected an MRI of the c ervical spine may be a more useful diagnostic tool. Thank you for allowing me to perform neurodiagnostic testing on your patient. If you have a ny further questions or comments, please do not hesitate to call. Hipolito Walker MD Fellow, [employer]. documented in this encounter Plan of Treatment Not on filedocumented as of this encounter Visit Diagnoses + + | Diagnosis | + + | Chronic left shoulder pain - Primary Pain in joint, shoulder region | + + | Carpal tunnel syndrome on left Carpal tunnel syndrome | + + documented in this encounter
--- OUTSIDE RECORDS SUMMARY | ~2019-01-16 | XMS | Encounter Summary ---
Demographics + + + | Address | [address] | | | [place] [address] | + + + | Home Phone | | + + + | Preferred Language | Unknown | + + + | Marital Status | Single | + + + | Hoahaoism Affiliation | Unknown | + + + | Race | Unknown | + + + | Ethnic Group | Unknown | + + + Author + + + | Author | [facility] | | | and [place] | + + + | Organization | [facility] | | | and [place] | + + + | Address | Unknown | + + + | Phone | Unavailable | + + + Support + + + + + | Name | Relationship | Address | Phone | + + + + + | Ghazala Watson | KIM | [address] [facility] | | | | | [place] | | | | | [address] | | + + + + + Care Team Providers + +------+ + | Care Manager Shop Name | Role | Phone | + [...] | | | [address] | [address] | | | | | [address] | | | | | | [phone] | | | +--------+ + + + [...]
--- OUTSIDE RECORDS SUMMARY | ~2019-01-16 | XMS | Encounter Summary ---
Demographics + + + | Address | [address] | | | [place] [address] | + + + | Home Phone | | + + + | Preferred Language | Unknown | + + + | Marital Status | Single | + + + | Methodist Affiliation | Unknown | + + + | Race | Unknown | + + + | Ethnic Group | Unknown | + + + Author + + + | Author | [facility] | | | and [place] | + + + | Organization | [facility] | | | and [place] | + + + | Address | Unknown | + + + | Phone | Unavailable | + + + Support + + + + + | Name | Relationship | Address | Phone | + + + + + | Ghazala Watson | KIM | [address] [facility] | | | | | [place] | | | | | [address] | | + + + + + Care Team Providers + +------+ + | Care Business Office Coordinator Name | Role | Phone | + [...] + + + + | 04/04/ | Anesthesia | [facility] | Efrain Parikh | | | 2018 | Event | [facility] OP | MD Ray [address] | | | | | [address] | [address] [place] | | | | | [place] | [place], [place] [address] | | | | | [address] | [phone] | | | | | [phone] | | | +--------+ + + + + Anesthesia Record + + + + + | Procedure Name | Responsible | Anesthesia Start | Anesthesia Stop Time | | | Anesthesiologist | Time | | + + + + + | EGD (N/A Mouth) | Efrain Parikh, | 04/04/17 1617 | 04/04/17 1648 | | | | | | + + + + + +----+---+ + + | Da | T | Event | Comment | | te | i | | | | | m | | | | | e | | | +----+---+ + + | 02 | 1 | | | | /1 | 5 | | | | 6/ | 3 | | | | 20 | 5 | | | | 18 | | | | +----+---+ + + | | 1 | An Checkout | Pre-use anesthesia machine/equipment checkout. | | | 6 | | | | | 1 | | | | | 6 | | | +----+---+ + + | | 1 | An Start | Reassessment prior to anesthesia induction/procedure. | | | 6 | | | | | 1 | | | | | 7 | | | +----+---+ + + | | 1 | First | | | | 6 | Inc/Proc St | | | | 2 | | | | | 0 | | | +----+---+ + + | | 1 | AN | Per surgeon request | | | 6 | Antibiotic | | | | 2 | declined | | | | 2 | | | +----+---+ + + | | 1 | Pre-Procedu | | | | 6 | ral Timeout | | | | 2 | Completed | | | | 2 | | | +----+---+ + + | | 1 | An | | | | 6 | Induction | | | | 2 | | | | | 2 | | | +----+---+ + + | | 1 | Breathing | | | | 6 | Spontaneous | | | | 3 | ly | | | | 3 | | | +----+---+ + + | | 1 | An Stop | Patient handed off to recovery nurse. | | | 4 | | | | | 8 | | | +----+---+ + + +------+ | Meds | +------+ + + + | Name | Total | + + + | propofol (DIPRIVAN) injection | 175 mg | | (bolus) (20 mL) | | + + + | propofol (DIPRIVAN) injection | 144.54 mg | | (bolus) (20 mL) | | + + + | lidocaine 2% | 100 mg | + + + + + | Name | + + | O2 Flow Rate (L/Min) | + + + + | No blood administrations on file. | + + +--------+ + + + | Type | Details | Placement | Removal | +--------+ + + + | Periph | 04/04/17; 1414; Left; Medial; | 04/04/17 1414 by | 04/04/17 1706 by | | eral | Wrist; txrp-kly-gjnawx catheter | Marilou López, | Lilliana Coronel RN | | IV | system; 20 gauge, 1 02/20 in | RN | | | | length; 1; right wrist, tip in | | | | | tact (IV attempt by SANJIV Ness); | | | | | no longer indicated; 04/04/17; | | | | | 1706 | | | +--------+ + + + documented in this encounter Social History + + + +--------+ + [...] Visit Diagnoses Not on filedocumented in this encounter Administered Medications + +--------+ +--------+------+------+ | Medication Order | MAR | Action | Dose | Rate | Site | | | Action | Date | | | | + +--------+ +--------+------+------+ | lidocaine (PF) 2% injection | Given | 04/04/19 | 100 mg | | | | Intravenous, PRN, Starting Fri | | 18 4:22 | | | | | 18 at 1622, Anesthesia | | PM PST | | | | | Intra-op | | | | | | + +--------+ +--------+------+------+ +---+---+ | | | +---+---+ + +-------+ +-------+---+---+ | propofol (DIPRIVAN) injection | Given | 04/04/19 | 25 mg | | | | PRN, Starting 04/04/17 at | | 18 4:26 | | | | | 1622, Anesthesia Intra-op | | PM PST | | | | + +-------+ +-------+---+---+ +-------+ +--------+---+---+ | Given | 04/04/19 | 50 mg | | | | | 18 4:24 | | | | | | PM PST | | | | +-------+ +--------+---+---+ | Given | 04/04/19 | 100 mg | | | | | 18 4:22 | | | | | | PM PST | | | | +-------+ +--------+---+---+ +---+---+ | | | +---+---+ + +---------+ + +-------+---+ | propofol (DIPRIVAN) injection | New Bag | 04/04/19 | 200 | 78.8 | | | CONTINUOUS PRN, Starting Fri | | 18 4:22 | mcg/kg/m | mL/hr | | | 04/04/17 at 1622, Anesthesia | | PM PST | in | | | | Intra-op | | | | | | + +---------+ + +-------+---+ +---+---+ | | | +---+---+ documented in this encounter"
--- OUTSIDE RECORDS SUMMARY | ~2019-01-16 | XMS | Encounter Summary ---
Demographics + + + | Address | [address] | | | [place] [address] | + + + | Home Phone | | + + + | Preferred Language | Unknown | + + + | Marital Status | Single | + + + | Latter Day Affiliation | Unknown | + + + | Race | Unknown | + + + | Ethnic Group | Unknown | + + + Author + + + | Author | [facility] | | | and [place] | + + + | Organization | [facility] | | | and [place] | + + + | Address | Unknown | + + + | Phone | Unavailable | + + + Support + + + + + | Name | Relationship | Address | Phone | + + + + + | Ghazala Watson | KIM | [address] [facility] | | | | | [place] | | | | | [address] | | + + + + + Care Team Providers + +------+ + | Care In Flight Crew Member Name | Role | Phone | + [...] [place] | | | | | [address] [place], [place] | [place] [address] | | | | | [address] | [phone] | | | | | [phone] | | | +--------+ + + + [...]
--- OUTSIDE RECORDS SUMMARY | ~2019-01-16 | XMS | Clinical Summary ---
Demographics + + + | Address | [address] | | | [place] [address] | + + + | Home Phone | | + + + | Preferred Language | Unknown | + + + | Marital Status | Single | + + + | Shinto Affiliation | Unknown | + + + | Race | Unknown | + + + | Ethnic Group | Unknown | + + + Author + + + | Author | [facility] | | | and [place] | + + + | Organization | [facility] | | | and [place] | + + + | Address | Unknown | + + + | Phone | Unavailable | + + + Support + + + + + | Name | Relationship | Address | Phone | + + + + + | Ghazala Watson | KIM | [address] [facility] | | | | | [place] | | | | | [address] | | + + + + + Care Team Providers + +------+ + | Care Tack Coverer Name | Role | Phone | + [...] | | 18 | | | | [id number] | (RECIPE = 1:1:1 | | | [...] | [employer] | [employer] | [id number] | 01/05/ | [phone] | | [employer]ica | | MEDICAID HMO [...] ciarra | | | 0 (Home) | [address] | + +--------+ +--------+ + + Advance Directives + + + + + | Type | Date Recorded | Patient | Explanation | | | | Maintenance Planner | | + + + + + | Power of | | | | | Calender Let Off Helper | | | | + + + + + | Advance | 04/04/2017 1:17 | | | | Directive | PM | | | + + + + +
--- OUTSIDE RECORDS SUMMARY | ~2019-01-16 | XMS | Encounter Summary ---
Demographics + + + | Address | [address] | | | [place] [address] | + + + | Home Phone | | + + + | Preferred Language | Unknown | + + + | Marital Status | Single | + + + | Orthodoxy Affiliation | Unknown | + + + | Race | Unknown | + + + | Ethnic Group | Unknown | + + + Author + + + | Author | [facility] | | | and [place] | + + + | Organization | [facility] | | | and [place] | + + + | Address | Unknown | + + + | Phone | Unavailable | + + + Support + + + + + | Name | Relationship | Address | Phone | + + + + + | Ghazala Watson | KIM | [address] [facility] | | | | | [place] | | | | | [address] | | + + + + + Care Team Providers + +------+ + | Care Mold Repair Technician Name | Role | Phone | + +------+ + | Adrienne Palacio TECHNICAL SOLUTIONS ENGINEER | PCP | | + +------+ + Reason for Visit +--------+ + | Reason | Comments | +--------+ + | Other | questions | +--------+ + Encounter Details +--------+ + + + + | Date | Type | Department | Care Team | Description | +--------+ + + + + | 04/04/ | Telephone | [facility] | Gibson Tate | Other (questions) | | 2018 | | GASTROENTEROLOGY | MD Mohan [address] | | | | | [address] [place] | [address] [place] | | | | | [address] [place], [place] | [place] [address] | | | | | [address] | [phone] | | | | | [phone] | | | +--------+ + + + [...]
--- OUTSIDE RECORDS SUMMARY | ~2019-01-16 | XMS | Encounter Summary ---
Demographics + + + | Address | [address] | | | [place] [address] | + + + | Home Phone | | + + + | Preferred Language | Unknown | + + + | Marital Status | Single | + + + | Restorationist Affiliation | Unknown | + + + | Race | Unknown | + + + | Ethnic Group | Unknown | + + + Author + + + | Author | [facility] | | | and [place] | + + + | Organization | [facility] | | | and [place] | + + + | Address | Unknown | + + + | Phone | Unavailable | + + + Support + + + + + | Name | Relationship | Address | Phone | + + + + + | Ghazala Watson | KIM | [address] [facility] | | | | | [place] | | | | | [address] | | + + + + + Care Team Providers + +------+ + | Care Senior Research Associate Name | Role | Phone | + [...] | (gastroesoph | Phone: | [address], | | | | | ageal reflux | | [address] | | | | | disease) | Fax: | [place], | | | | | Procedures | | [place] [address] | | | | | Office Visit | | Phone: | | | | | | | [phone] | | | | | | | Fax: | | | | | | | [phone] | +--------+--------+ + + + + Encounter Details +--------+---------+ + + + | Date | Type | Department | Care Team | Description | +--------+---------+ + + + | 03/12/ | Office | [facility] | Gibson Tate | Gastroesophageal | | 2018 | Visit | GASTROENTEROLOGY | MD Mohan [address] | reflux disease, | | | | [address] [place] | [address] [place] | esophagitis presence | | | | [address] [place], [place] | [place] [address] | not specified | | | | [address] | [phone] | (Primary Dx); | | | | [phone] | | Cannabis use, | | | [...] Unknown No address on file Adrienne Palacio, [address] [place] [address] Portions of this chart may have been created with [employer] voice recognition software. Occasi onal wrong-word or [...] and topical cream.; she is not taking [place]; re viewed medication, surg/med hx and allergies; reviewed prep instructions and were given to p t; completed case request order, notes to MA. Ordered new rx for Omeprazole 40 mg bid befor e meals and ranitidine 300 mg 1 nightly prn to [facility] in [place]. documented in this encounter Plan of Treatment [...]
--- OUTSIDE RECORDS SUMMARY | ~2019-01-16 | XMS | Encounter Summary ---
Demographics + + + | Address | [address] | | | [place] [address] | + + + | Home Phone | | + + + | Preferred Language | Unknown | + + + | Marital Status | Single | + + + | Episcopal Affiliation | Unknown | + + + | Race | Unknown | + + + | Ethnic Group | Unknown | + + + Author + + + | Author | [facility] | | | and [place] | + + + | Organization | [facility] | | | and [place] | + + + | Address | Unknown | + + + | Phone | Unavailable | + + + Support + + + + + | Name | Relationship | Address | Phone | + + + + + | Ghazala Watson | KIM | [address] [facility] | | | | | [place] | | | | | [address] | | + + + + + Care Team Providers + +------+ + | Care Clinical Programmer Name | Role | Phone | + [...] | | | | | | | CT | | | | | | | ESOPHAGOGAST | | | | | | | RODUODENOSCO | | | | | | | PY TRANSORAL | | | | | | | DIAGNOSTIC | | | | | | | CT EGD | | | | | | | TRANSORAL | | | | | | | BIOPSY | | | | | | | SINGLE/MULTI | | | | | | | PLE CT | | | | | | | [...] | | | | | [address] | [address] [place] | | | | | [place], [place] | [place] [address] | | | | | [address] | [phone] | | | | | [phone] | | | +--------+---------+ + + + [...] (swallow). | | | | | | [id number] | (RECIPE = 1:1:1 | | | [...] 04/04/2017 | PROVATION | | 4:16 PMMRN: [id number] #: [id number] of : | | | 1970Admit Type: AmbulatoryAge: 46[facility]: [facility] 01Gender: FemaleNote | | | Status: FinalizedAttending MD: JAYE OWEN , [facility]rocedure: | | | Upper GI endoscopyIndications: Dysphagia, | | | HeartburnProviders: JAYE OWEN MD, Rakel Willson, | | | RNKimberly, Pyrotechnist, [facility]. | | | MD Jl (Anesthesia Staff)Referring MD: Adrienne Palacio, | | | PUBLIC INFORMATION RELATIONS MANAGER (Referring MD)Medicines: Monitored Anesthesia | | | [...] On: | | | 04/04/2017 4:16 PM [facility], [address] | | | [place] [address] | | | - Normal duodenal bulb [...] On: 04/04/2017 4:16 PM | | | [facility], [address] [place], [place] | | | [address] | | + + -+ + +---------+ [...] | 1.010, 1.015, | | | | [place], | | 1.020, 1.025 | | | | POC | | | | | + + + + + + | Lot Number | [id number] | | | | + + + [...] glandular tissue as | | | sampled. CLR:[facility]:C2NR GROSS DESCRIPTION: Received in three | | [...] | | | submitted, all in (C1). ka:CLR:[facility] PERFORMING LABORATORY: Tissue | | | processing and slide preparation were performed by [employer] | | | [employer], [facility] [address], [place] [address] | | | (Analog Design Engineer: Dougie Cline M.D. CLIA#: [id number]). | | | Professional interpretation was performed by [employer], [address] | | [address], [place] [address] (Analog Design Engineer: Dougie | | | Rosalinda Cline; CLIA#: [id number]). Diagnostician: | | | Radames Staples MD [...]
--- OUTSIDE RECORDS SUMMARY | ~2019-01-16 | XMS | Encounter Summary ---
Demographics + + + | Address | [address] | | | [place] [address] | + + + | Home Phone | | + + + | Preferred Language | Unknown | + + + | Marital Status | Single | + + + | Restoration Affiliation | Unknown | + + + | Race | Unknown | + + + | Ethnic Group | Unknown | + + + Author + + + | Author | [facility] | | | and [place] | + + + | Organization | [facility] | | | and [place] | + + + | Address | Unknown | + + + | Phone | Unavailable | + + + Support + + + + + | Name | Relationship | Address | Phone | + + + + + | Ghazala Watson | KIM | [address] [facility] | | | | | [place] | | | | | [address] | | + + + + + Care Team Providers + +------+ + | Care Gang Knife Fish Chopper Name | Role | Phone | + [...] + + | 04/24/ | Telephone | [facility] Gibson Tate | Medication Question | | 2017 | | GASTROENTEROLOGY | MD Mohan [address] | | | | | [address] [place] | [address] [place] | | | | | [address] [place], [place] | [place] [address] | | | | | [address] | [phone] | | | | | [phone] | | | +--------+ + + + [...]
--- OUTSIDE RECORDS SUMMARY | ~2019-01-16 | XMS | Encounter Summary ---
Demographics + + + | Address | [address] | | | [place] [address] | + + + | Home Phone | | + + + | Preferred Language | Unknown | + + + | Marital Status | Single | + + + | Presybeterian Affiliation | Unknown | + + + | Race | Unknown | + + + | Ethnic Group | Unknown | + + + Author + + + | Author | [facility] | | | and [place] | + + + | Organization | [facility] | | | and [place] | + + + | Address | Unknown | + + + | Phone | Unavailable | + + + Support + + + + + | Name | Relationship | Address | Phone | + + + + + | Ghazala Watson | KIM | [address] [facility] | | | | | [place] | | | | | [address] | | + + + + + Care Team Providers + +------+ + | Care Flight Control Tower Operator Name | Role | Phone | [...] | | | | | | | [place] | | | | | | | ESOPHAGOGAST | | | | | | | RODUODENOSCO | | | | | | | PY TRANSORAL | | | | | | | DIAGNOSTIC | | | | | | | [place] EGD | | | | | | | TRANSORAL | | | | | | | BIOPSY | | | | | | | SINGLE/MULTI | | | | | | | PLE [place] | | | | | | | [...] | | | | | [address] | [address] [place] | | | | | [place], [place] | [place] [address] | | | | | [address] | [phone] | | | | | [phone] | | | +--------+---------+ + + + [...] (swallow). | | | | | | [id number] | (RECIPE = 1:1:1 | | | [...] 04/04/2017 | PROVATION | | 4:16 PMMRN: [id number] #: [id number] of : | | | 1970Admit Type: AmbulatoryAge: 46Room: [facility] 01Gender: FemaleNote | | | Status: FinalizedAttending MD: JAYE OWEN , [facility]rocedure: | | | Upper GI endoscopyIndications: Dysphagia, | | | HeartburnProviders: JAYE OWEN MD, Rakel Willson, | | | RNKimberly, Director Of Strategic Communications, [facility]. | | | MD Jl (Anesthesia Staff)Referring MD: Adrienne Palacio, | | | SALESPERSON HOUSEHOLD APPLIANCES (Referring MD)Medicines: Monitored Anesthesia | | | [...] On: | | | 04/04/2017 4:16 PM [facility], [address] | | | [place] [address] | | | - Normal duodenal bulb [...] On: 04/04/2017 4:16 PM | | | [facility], [address] [place], [place] | | | [address] | | + + -+ + +---------+ [...] | 1.010, 1.015, | | | | [place], | | 1.020, 1.025 | | | | POC | | | | | + + + + + + | Lot Number | [id number] | | | | + + + [...] glandular tissue as | | | sampled. CLR:[facility]:C2NR GROSS DESCRIPTION: Received in three | | [...] | | | submitted, all in (C1). ka:CLR:[facility] PERFORMING LABORATORY: Tissue | | | processing and slide preparation were performed by [employer] | | | [employer], [facility] [address], [place] [address] | | | (Senior Telecommunications Engineer: Dougie Cline M.D. CLIA#: [id number]). | | | Professional interpretation was performed by [employer], [address] | [address], [place] [address] (Senior Telecommunications Engineer: Dougie | | | Rosalinda Cline; CLIA#: [id number]). Diagnostician: | | | Radames Staples MD [...]
--- OUTSIDE RECORDS SUMMARY | ~2019-01-16 | XMS | Encounter Summary ---
Demographics + + + | Address | [address] | | | [place] [address] | + + + | Home Phone | | + + + | Preferred Language | Unknown | + + + | Marital Status | Single | + + + | Hinduism Affiliation | Unknown | + + + | Race | Unknown | + + + | Ethnic Group | Unknown | + + + Author + + + | Author | [facility] | | | and [place] | + + + | Organization | [facility] | | | and [place] | + + + | Address | Unknown | + + + | Phone | Unavailable | + + + Support + + + + + | Name | Relationship | Address | Phone | + + + + + | Ghazala Watson | KIM | [address] | | | | | [place] | | | | | [address] | | + + + + + Care Team Providers + +------+ + | Care Wedding Consultant Name | Role | Phone | + +------+ + | Adrienne Palacio NP | PCP | | + +------+ + Reason for Visit + + + | Reason | Comments | + + + | Letter for | | | School/Work | | + + + Encounter Details +--------+ + + + + | Date | Type | Department | Care Team | Description | +--------+ + + + + | 03/20/ | Telephone | [facility] | Hipolito Walker | Letter for | | 2015 | | PHYSIATRY [address] | [address] | School/Work | | | | [place], | [address] [place] | | | | | [place] [address] | [address] | | | | | [phone] | | | +--------+ + + + [...]
--- OUTSIDE RECORDS SUMMARY | ~2019-01-16 | XMS | Encounter Summary ---
Demographics + + + | Address | [address] | | | [place] [address] | + + + | Home Phone | | + + + | Preferred Language | Unknown | + + + | Marital Status | Single | + + + | Baptism Affiliation | Unknown | + + + | Race | Unknown | + + + | Ethnic Group | Unknown | + + + Author + + + | Author | [facility] | | | and [place] | + + + | Organization | [facility] | | | and [place] | + + + | Address | Unknown | + + + | Phone | Unavailable | + + + Support + + + + + | Name | Relationship | Address | Phone | + + + + + | Ghazala Watson | KIM | [address] [facility] | | | | | [place] | | | | | [address] | | + + + + + Care Team Providers + +------+ + | Care Surveyor Geophysical Prospecting Name | Role | Phone | + [...] [place] | | | | | [address] [place], [place] | [place] [address] | | | | | [address] | [phone] | | | | | [phone] | | | +--------+ + + + [...]
--- OUTSIDE RECORDS SUMMARY | ~2019-01-16 | XMS | Encounter Summary ---
Demographics + + + | Address | [address] | | | [place] [address] | + + + | Home Phone | | + + + | Preferred Language | Unknown | + + + | Marital Status | Single | + + + | Baptism Affiliation | Unknown | + + + | Race | Unknown | + + + | Ethnic Group | Unknown | + + + Author + + + | Author | [facility] | | | and [place] | + + + | Organization | [facility] | | | and [place] | [...] [place] | | | | | [address] | | + + + + + Care Team Providers + +------+ + | Care Control Systems Developer Name | Role | Phone | + [...] [address] | School/Work | | | | [place], | [address] [place] | | | | | [place] [address] | [address] | | | | | [phone] | | | +--------+ + + + [...]
--- OUTSIDE RECORDS SUMMARY | ~2019-01-16 | XMS | Encounter Summary ---
Demographics + + + | Address | [address] | | | [place] [address] | + + + | Home Phone | | + + + | Preferred Language | Unknown | + + + | Marital Status | Single | + + + | Yarsani Affiliation | Unknown | + + + | Race | Unknown | + + + | Ethnic Group | Unknown | + + + Author + + + | Author | [facility] | | | and [place] | + + + | Organization | [facility] | | | and [place] | + + + | Address | Unknown | + + + | Phone | Unavailable | + + + Support + + + + + | Name | Relationship | Address | Phone | + + + + + | Ghazala Watson | KIM | [address] [facility] | | | | | [place] | | | | | [address] | | + + + + + Care Team Providers + +------+ + | Care Clay Digger Name | Role | Phone | + [...] | (gastroesoph | Phone: | [address], | | | | | ageal reflux | | [address] | | | | | disease) | Fax: | [place], | | | | | Procedures | | [place] [address] | | | | | Office Visit | | Phone: | | | | | | | [phone] | | | | | | | Fax: | | | | | | | [phone] | +--------+--------+ + + + + Encounter Details +--------+---------+ + + + | Date | Type | Department | Care Team | Description | +--------+---------+ + + + | 03/12/ | Office | [facility] | Gibson Tate | Gastroesophageal | | 2018 | Visit | GASTROENTEROLOGY | MD Mohan [address] | reflux disease, | | | | [address] [place] | [address] [place] | esophagitis presence | | | | [address] [place], [place] | [place] [address] | not specified | | | | [address] | [phone] | (Primary Dx); | | | | [phone] | | Cannabis use, | | | [...] Unknown No address on file Adrienne Palacio, [id number] [place] [address] Portions of this chart may have been created with ISpeak voice recognition software. Occasi onal wrong-word or [...] and topical cream.; she is not taking [place]; re viewed medication, surg/med hx and allergies; reviewed prep instructions and were given to p t; completed case request order, notes to MA. Ordered new rx for Omeprazole 40 mg bid befor e meals and ranitidine 300 mg 1 nightly prn to [facility] in [place]. documented in this encounter Plan of Treatment [...]
--- OUTSIDE RECORDS SUMMARY | ~2019-01-16 | XMS | Encounter Summary ---
Demographics + + + | Address | [address] | | | [place] [address] | + + + | Home Phone | | + + + | Preferred Language | Unknown | + + + | Marital Status | Single | + + + | Confucianist Affiliation | Unknown | + + + | Race | Unknown | + + + | Ethnic Group | Unknown | + + + Author + + + | Author | [facility] | | | and [place] | + + + | Organization | [facility] | | | and [place] | + + + | Address | Unknown | + + + | Phone | Unavailable | + + + Support + + + + + | Name | Relationship | Address | Phone | + + + + + | Ghazala Watson | KIM | [address] [facility] | | | | | [facility] [place] | | | | | [address] | | + + + + + Care Team Providers + +------+ + | Care Lion Hunter Name | Role | Phone | + +------+ + PCP | Unavailable | + +------+ + Encounter Details +--------+ + + + + | Date | Type | Department | Care Team | Description | +--------+ + + + + | 12/31/ | [facility] | [facility] | Will Rangel, | | | 2005 | Encounter | MED CTR MP INTRA OP | [address] | | | | | [address] | [place] | | | | | [place] | [address] | | | | | [address] | | | | | | [phone] | | | +--------+ + + + [...]
--- OUTSIDE RECORDS SUMMARY | ~2019-01-16 | XMS | Encounter Summary ---
Demographics + + + | Address | [address] | | | [place] [address] | + + + | Home Phone | | + + + | Preferred Language | Unknown | + + + | Marital Status | Single | + + + | Mosque Affiliation | Unknown | + + + | Race | Unknown | + + + | Ethnic Group | Unknown | + + + Author + + + | Author | [facility] | | | and [place] | + + + | Organization | [facility] | | | and [place] [...] [place] | | | | | [address] | | + + + + + Care Team Providers + +------+ + | Care Manager Sign Name | Role | Phone | + [...] | | | | Disturbance | [place] [address] | [address] Phone: | | | | | of skin | Phone: | [phone] | | | | | sensation | [phone] | Fax: | | | | | Procedures | Fax: | [phone] | | | | | [place] MOT[place] | [phone] | | | | | | &/SENS [...] | shoulder pain | | | | [place], | [place], [place] | (Primary Dx); Carpal | | | | [place] [address] | [address] | tunnel syndrome on | | | | [phone] | | left | +--------+ + + [...] Walker MD - 03/20/2015 11:58 AM PST [facility] Musculoskeletal, Sports and Spine, Physiatry [address] [address] Test Date: 03/20/2015 Patient Name: Loraine Lynn : 1970 Physician: Hipolito Walker MD MR #: [id number] Sex: Female Referring Physician: Errol Stauffer MD [...] hesitate to call. Hipolito Walker MD Fellow, [employer]. documented [...]
--- OUTSIDE RECORDS SUMMARY | ~2019-01-16 | XMS | Encounter Summary ---
Demographics + + + | Address | [address] | | | [place] [address] | + + + | Home Phone | | + + + | Preferred Language | Unknown | + + + | Marital Status | Single | + + + | Nondenominational Affiliation | Unknown | + + + | Race | Unknown | + + + | Ethnic Group | Unknown | + + + Author + + + | Author | [facility] | | | and [place] | + + + | Organization | [facility] | | | and [...] [place] | | | | | [address] | | + + + + + Care Team Providers + +------+ + | Care Launch Manager Name | Role | Phone | + +------+ + | Adrienne Palacio NUTRITION ASSISTANT | PCP | | + +------+ + [...] [place] | | | | | [address] [place], [place] | [place] [address] | | | | | [address] | [phone] | | | | | [phone] | | | +--------+ + + + [...]
--- OUTSIDE RECORDS SUMMARY | ~2019-01-16 | XMS | Encounter Summary ---
Demographics + + + | Address | [address] | | | [place] [address] | + + + | Home Phone | | + + + | Preferred Language | Unknown | + + + | Marital Status | Single | + + + | Presybeterian Affiliation | Unknown | + + + | Race | Unknown | + + + | Ethnic Group | Unknown | + + + Author + + + | Author | [facility] | | | and [place] | + + + | Organization | [facility] | | | and [place] | + + + | Address | Unknown | + + + | Phone | Unavailable | + + + Support + + + + + | Name | Relationship | Address | Phone | + + + + + | Ghazala Watson | KIM | [address] [facility] | | | | | [facility] [place] | | | | | [address] | | + + + + + Care Team Providers + +------+ + | Care Data Base Design Analyst Name | Role | Phone | + +------+ + PCP | Unavailable | + +------+ + Encounter Details +--------+ + + + + | Date | Type | Department | Care Team | Description | +--------+ + + + + | 12/31/ | [facility] | [facility] | Will Rangel, | | | 2005 | Encounter | MED CTR MP INTRA OP | [address] | | | | | [address] | [place] | | | | | [place] | [address] | | | | | [address] | | | | | | [phone] | | | +--------+ + + + [...]
--- OUTSIDE RECORDS SUMMARY | ~2019-01-16 | XMS | Encounter Summary ---
Demographics + + + | Address | [address] | | | [place] [address] | + + + | Home Phone [...] + + + | Author | [facility] | | | and [place] | + + + | Organization | [facility] | | | and [place] | + + + | Address | Unknown | + + + | Phone | Unavailable | + + + Support + + + + + | Name | Relationship | Address | Phone | + + + + + | Ghazala Watson | KIM | [address] [facility] | | | | | [place] | | | | | [address] | | + + + + + Care Team Providers + +------+ + | Care Outside Repairer Special Name | Role | Phone | + [...] | | | | | | | [place] | | | | | | | ESOPHAGOGAST | | | | | | | RODUODENOSCO | | | | | | | PY TRANSORAL | | | | | | | DIAGNOSTIC | | | | | | | [place] EGD | | | | | | | TRANSORAL | | | | | | | BIOPSY | | | | | | | SINGLE/MULTI | | | | | | | PLE [place] | | | | | | | [...] + + + + | 04/04/ | [facility] | [facility] | Jaye Owen | Gastroesophageal | | 2018 | Encounter | MED CTR MP INTRA OP | MD Mohan [address] | reflux disease | | | | [address] | [address] [place] | without esophagitis | | | | [place], [place] | [place] [address] | | | | | [address] | [phone] | | | | | [phone] | | | +--------+ + + + [...] (swallow). | | | | | | [id number]-[id number] | (RECIPE = 1:1:1 | | | [...] 04/04/2017 | PROVATION | | 4:16 PMMRN: [id number] #: [id number] of : | | | 1970Admit Type: AmbulatoryAge: 46Room: [facility] 01Gender: FemaleNote | | | Status: FinalizedAttending MD: JAYE OWEN , MDProcedure: | | | Upper GI endoscopyIndications: Dysphagia, | | | HeartburnProviders: JAYE OWEN MD, Rakel Willson, | | | RNKimberly, Director Public Policy, Efrain Berry | | | MD Jl (Anesthesia Staff)Referring MD: Adrienne Palacio, | | | SET UP MECHANIC (Referring MD)Medicines: Monitored Anesthesia | | | [...] | | | 04/04/2017 4:16 PM [facility], [address] | | | [place] [address] | | | - Normal duodenal bulb [...] 04/04/2017 4:16 PM | | | [facility], [address] [place], [place] | | | [address] | | + + -+ + +---------+ [...] | 1.010, 1.015, | | | | [place], | | 1.020, 1.025 | | | | POC | | | | | + + + + + + | Lot Number | [id number] | | | | + + + [...] glandular tissue as | | | sampled. CLR:[facility]:C2NR GROSS DESCRIPTION: Received in three | | [...] | | | submitted, all in (C1). ka:CLR:[facility] PERFORMING LABORATORY: Tissue | | | processing and slide preparation were performed by [employer] | | | [employer], [facility] [place] [place] [address], [place] [address] | | | (Middle School Art Teacher: Dougie Cline M.D. CLIA#: [id number]). | | | Professional interpretation was performed by [employer], [address] | [address], [place] [address] (Middle School Art Teacher: Dougie | | | Rosalinda Cline; CLIA#: [id number]). Diagnostician: | | | Radames Staples MD [...]
--- OUTSIDE RECORDS SUMMARY | ~2019-01-16 | XMS | Encounter Summary ---
Demographics + + + | Address | [address] | | | [place] [address] | + + + | Home Phone [...] + + | Author | [facility] | | | and [place] | + + + | Organization | [facility] | | | and [place] | + + + | Address | Unknown | + + + | Phone | Unavailable | + + + Support + + + + + | Name | Relationship | Address | Phone | + + + + + | Ghazala Watson | KIM | [address] [facility] | | | | | [place] | | | | | [address] | | + + + + + Care Team Providers + +------+ + | Care Plasma Processing Centrifuge Operator Name | Role | Phone | [...] | | | [address] [place] | [address] | | | | | [address] | | | | | | [phone] | | | +--------+ + + + [...]
--- OUTSIDE RECORDS SUMMARY | ~2019-01-16 | XMS | Clinical Summary ---
Demographics + + + | Address | [address] | | | [place] [address] | + + + | Home Phone [...] | Author | [facility] | | | and [place] | + + + | Organization | [facility] | | | and [place] | + + + | Address | Unknown | + + + | Phone | Unavailable | + + + Support + + + + + | Name | Relationship | Address | Phone | + + + + + | Ghazala Watson | KIM | [address] [facility] | | | | | [place] | | | | | [address] | | + + + + + Care Team Providers + +------+ + | Care Cafeteria Associate Name | Role | Phone | [...] | | 18 | | | | [id number] | (RECIPE = 1:1:1 | | | [...] | [employer] | [employer] | [id number] | 01/05/ | [phone] | | Medica | | MEDICAID HMO [...] [place] | | | 0 (Home) | [address] | + +--------+ +--------+ + + Advance Directives + + + + + | Type | Date Recorded | Patient | Explanation | | | | Mason Tender | | + + + + + | Power of | | | | | Finish Filer | | | | + + + + + | Advance | 04/04/2017 1:17 | | | | Directive | PM | | | + + + + +
--- OUTSIDE RECORDS SUMMARY | ~2019-01-16 | XMS | Encounter Summary ---
Demographics + + + | Address | [address] | | | [place] [address] | + + + | Home Phone | | + + + | Preferred Language | Unknown | + + + | Marital Status | Single | + + + | Moravian Affiliation | Unknown | + + + | Race | Unknown | + + + | Ethnic Group | Unknown | + + + Author + + + | Author | [facility] | | | and [place] | + + + | Organization | [facility] | | | and [place] | + + + | Address | Unknown | + + + | Phone | Unavailable | + + + Support + + + + + | Name | Relationship | Address | Phone | + + + + + | Ghazala Watson | KIM | [address] [facility] | | | | | [place] | | | | | [address] | | + + + + + Care Team Providers + +------+ + | Care Powder Operator Name | Role | Phone | [...] | | | [address] [place] [address] | [address] | | | | | [address] | | | | | | [phone] | | | +--------+ + + + [...]
--- OUTSIDE RECORDS SUMMARY | ~2019-01-16 | XMS | Encounter Summary ---
Demographics + + + | Address | [address] | | | [place] [address] | + + + | Home Phone | | + + + | Preferred Language | Unknown | + + + | Marital Status | Single | + + + | Synagogue Affiliation | Unknown | + + + | Race | Unknown | + + + | Ethnic Group | Unknown | + + + Author + + + | Author | [facility] | | | and [place] | + + + | Organization | [facility] | | | and [place] | + + + | Address | Unknown | + + + | Phone | Unavailable | + + + Support + + + + + | Name | Relationship | Address | Phone | + + + + + | Ghazala Watson | KIM | [address] [facility] | | | | | [place] | | | | | [address] | | + + + + + Care Team Providers + +------+ + | Care Processing Inspector Name | Role | Phone | [...] | | | | | | | [place] | | | | | | | ESOPHAGOGAST | | | | | | | RODUODENOSCO | | | | | | | PY TRANSORAL | | | | | | | DIAGNOSTIC | | | | | | | [place] EGD | | | | | | | TRANSORAL | | | | | | | BIOPSY | | | | | | | SINGLE/MULTI | | | | | | | PLE [place] | | | | | | | [...] | | | | | [address] | [address] [place] | | | | | [place] | [place], [place] [address] | | | | | [address] | [phone] | | | | | [phone] | | | +--------+ + + + [...] [address] | | eral | Wrist; wmzs-ybz-bttywy catheter | Marilou López, | Lilliana Coronel [...]
--- OUTSIDE RECORDS SUMMARY | ~2019-01-16 | XMS | Encounter Summary ---
Demographics + + + | Address | [address] | | | [place] [address] | + + + | Home Phone | | + + + | Preferred Language | Unknown | + + + | Marital Status | Single | + + + | Mormon Affiliation | Unknown | + + + | Race | Unknown | + + + | Ethnic Group | Unknown | + + + Author + + + | Author | [facility] | | | and [place] | + + + | Organization | [facility] | | [...] [place] | | | | | [address] | | + + + + + Care Team Providers + +------+ + | Care Theater Manager Name | Role | Phone | [...] [place] | | | | | | [address] | | | | | | [phone] | | | +--------+ + + + [...]
--- OUTSIDE RECORDS SUMMARY | ~2019-01-16 | XMS | Encounter Summary ---
Demographics + + + | Address | [address] | | | [place] [address] | + + + | Home Phone [...] + + + | Author | [facility] | | | and [facility] | + + + | Organization | [facility] | | | and [facility] | + + + | Address | Unknown | + + + | Phone | Unavailable | + + + Support + + + + + | Name | Relationship | Address | Phone | + + + + + | Ghazala Watson | KIM | [address] | | | | | [place] | | | | | [address] | | + + + + + Care Team Providers + +------+ + | Care Bobbin Washer Name | Role | Phone | + [...] | | | [address] | [address] | | | | | [address] | | | | | | [phone] | | | +--------+ + + + [...]
--- OUTSIDE RECORDS SUMMARY | ~2019-01-16 | XMS | Encounter Summary ---
Demographics + + + | Address | [address] | | | [place] [address] | + + + | Home Phone [...] + | Author | [facility] | | | and [facility] | + + + | Organization | [facility] | | | and [place] | + + + | Address | Unknown | + + + | Phone | Unavailable | + + + Support + + + + + | Name | Relationship | Address | Phone | + + + + + | Ghazala Watson | KIM | [address] | | | | | [place] | | | | | [address] | | + + + + + Care Team Providers + +------+ + | Care Professional Shopper Name | Role | Phone | + [...] [place] | | | | | | [address] | | | | | | [phone] | | | +--------+ + + + [...]
[~2019-01-16 11:44] MED LIST changes: +NAPROXEN250 MG PO
--- OUTSIDE RECORDS SUMMARY | 2019-01-16 11:46 | XMS ---
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 Gay has no Care Guidelines for this patient. Kenneth VISIT COUNT (12 MO.) [address] [facility] TOTAL 2 NOTE: Visits indicate total known visits. ED/[facility] VISIT TRACKING (12 MO.) 01/16/2019 11:45 [facility] [place] TYPE: Emergency COMPLAINT: - DOG BITE 01/12/2019 20:[address] [facility] [place] TYPE: Emergency COMPLAINT: - DOG BITE DIAGNOSES: - Bitten by dog, initial encounter - Other superficial bite of left knee, initial encounter - Open bite, left thigh, initial encounter - Other superficial bite of left knee, initial encounter - Nicotine dependence, unspecified, uncomplicated - Other terminal carman (current) drug therapy - Unspecified asthma, uncomplicated INPATIENT VISIT TRACKING (12 MO.) No inpatient visits to display in this time frame [id number]
[2019-01-16] MEDS ORDERED: AUGMENTIN 875-1 EACH PO (12:17)
[2019-01-16] MEDS ORDERED: NORCO 7.5-3251 EACH PO (12:17)
[2019-01-16] MEDS ORDERED: ONDANSETRON ODT8 MG PO (12:17)
== END 2019-01-16 12:30 | disposition home or self-care (01) ==
LOC: ED 11:44
DX: S81.052A Open bite, left knee, initial encounter (principal); L03.116 Cellulitis of left lower limb; J45.909 Unspecified asthma, uncomplicated; F17.200 Nicotine dependence, unspecified, uncomplicated; Z79.51 Long term (current) use of inhaled steroids; W54.0XXA Bitten by dog, initial encounter
CPT/HCPCS: 99283; A9270

== ENCOUNTER 2019-08-08 12:33 | Emergency (ER) | payer OTHER ==
[~2019-08-08] VITALS: Ht 162.6 cm; Wt 68.2 kg
[~2019-08-08 12:33] MED LIST changes: +AUGMENTIN 875-1 EACH PO; +NORCO 7.5-3251 EACH PO; +ONDANSETRON ODT8 MG PO
== END 2019-08-08 15:53 | disposition home or self-care (01) ==
LOC: ED 12:33
DX: N83.201 Unspecified ovarian cyst, right side (principal); J45.909 Unspecified asthma, uncomplicated; F17.200 Nicotine dependence, unspecified, uncomplicated; Z79.899 Other long term (current) drug therapy
CPT/HCPCS: 76830; 76856; 80053; 81001; 85025; 87210; 87491; 87591; 99284-25

== ENCOUNTER 2024-06-17 14:43 | Emergency (ER) | payer OTHER, BC ==
[~2024-06-17] VITALS: Ht 162.6 cm; Wt 73.4 kg
[2024-06-17 16:55] VITALS: BP 148/90
== END 2024-06-17 16:55 | disposition home or self-care (01) ==
LOC: ED 14:43
DX: S93.402A Sprain of unspecified ligament of left ankle, initial encounter (principal); J45.909 Unspecified asthma, uncomplicated; F17.200 Nicotine dependence, unspecified, uncomplicated; W01.0XXA Fall on same level from slipping, tripping and stumbling without subsequent striking against object, initial encounter
CPT/HCPCS: 73610; 99283